=== PATIENT | female | born 1965 | race African-American/Black ===

== ENCOUNTER 2016-11-05 06:40 | Inpatient (IN) | payer MEDICARE, OTHER ==
[2016-10-07 12:05] VITALS: BMI 38.6
--- NOTE | 2016-11-04 10:07 | HP ---
Satellite H - Chief Complaint Chief Complaint: left knee pain - Past Medical History Allergies/Adverse Reactions: Allergies Allergy/AdvReac Type Severity Reaction Status Date / Time molindone HCl [From Jessica] Allergy Difficulty Verified 10/07/16 11:54 Breathing shellfish derived Allergy Difficulty Verified 10/07/16 11:54 Breathing tomato Allergy Verified 01/13/16 09:49 ...LMP Comment: 2004 - Current Medications Current Medications: Home Medications Medication Instructions Recorded Liraglutide [Victoza -] 1.8 mg SQ DAILY@0700 06/11/13 Metformin HCl 500 mg PO BID 01/13/16 Oxycodone HCl/Acetaminophen 1 - 2 tab PO Q6H PRN #12 tab MDD 4 01/13/16 [Percocet 5-325 mg Tablet] Risperidone [Risperdal -] 0.5 mg PO BID PRN 01/13/16 Rosuvastatin Calcium [Crestor] 20 mg PO HS 01/13/16 Esomeprazole Magnesium [Nexium 20 mg PO DAILY 10/07/16 24Hr] Paroxetine HCl [Paxil -] 10 mg PO DAILY 10/07/16 Ramipril 2.5 mg PO DAILY 10/07/16 Satellite Physical Exam - Physical Examination General Appearance: Well Nourished, Well Developed, Alert & Oriented x3, Obese ENT: Clear Lung: Normal air movement Heart: Regular rate & rhythm Extremities: Other (left knee- + swelling, + ttp, decr rom, nvi xrays show severe tricompartmental djd) Neurological: Intact, Alert, Oriented Satellite Impression/Plan - Impression/Plan Impression: left knee djd Operative Procedure: left adriano tkr Date to be Performed: 11/05/16
[2016-11-05] MEDS ORDERED: GABAPENTIN 300 MG CAPSULE (FP) PO ONE ×2 (07:02→08:20)
[2016-11-05] MEDS ORDERED: CELECOXIB 200 MG CAPSULE PO ONE ×2 (07:02→08:20)
[2016-11-05] MEDS ORDERED: CEFAZOLIN 2 GM in DEXTROSE 5%-WATER - 50 ML IVPB ONE (07:02)
[2016-11-05] MEDS ORDERED: TRANEXAMIC ACID 1000 MG/10 ML VIAL IVPUSH ONE (07:02)
[2016-11-05] MEDS ORDERED: oxyCODONE HCL 10 MG SUSTAINED ACTING TABLET PO ONE ×2 (07:02→08:20)
[2016-11-05] MEDS ORDERED: VANCOMYCIN 1,000 MG VIAL (RESTRICTED TO ID ONLY) ONE (07:25)
[2016-11-05] MEDS ORDERED: ceFAZolin SODIUM 1 GM VIAL ONE ×2 (07:25→09:37)
[2016-11-05] MEDS ORDERED: CELECOXIB 200 MG CAPSULE ONE (07:57)
[2016-11-05] MEDS ORDERED: oxyCODONE HCL 10 MG SUSTAINED ACTING TABLET ONE (07:57)
[2016-11-05] MEDS ORDERED: GABAPENTIN 300 MG CAPSULE (FP) ONE (07:57)
[2016-11-05] MEDS ORDERED: MIDAZOLAM HCL 2 MG/2 ML SINGLE DOSE VIAL ONE ×4 (08:22→10:37)
[2016-11-05] MEDS ORDERED: DEXAMETHASONE SOD PHOSPHATE 4 MG/1 ML VIAL ONE (08:23)
[2016-11-05] MEDS ORDERED: SODIUM CHLORIDE 0.9% P/F 10 ML VIAL IJ ONE ×2 (08:26→09:37)
[2016-11-05] MEDS ORDERED: DEXAMETHASONE SOD PHOSPHATE/PF 10 MG/ML SDV ONE (08:30)
[2016-11-05] MEDS ORDERED: BUPIVACAINE HCL/PF (5 MG/ML) 30 ML VIAL IJ ONE (09:09)
[2016-11-05] MEDS ORDERED: BUPIVACAINE HCL/PF 0.5% (5MG/ML) 10 ML VIAL ONE (09:29)
[2016-11-05] MEDS ORDERED: PROPOFOL 20 ML ONE ×3 (09:31)
[2016-11-05] MEDS ORDERED: SUCCINYLCHOLINE CHLORIDE 200 MG/10 ML VIAL ONE (09:31)
[2016-11-05] MEDS ORDERED: ePHEDrine SULFATE 50 MG/1 ML AMPULE ONE (09:37)
[2016-11-05] MEDS ORDERED: VANCOMYCIN 1,000 MG VIAL (RESTRICTED TO ID ONLY) IVPB ONE (12:15)
[2016-11-05] MEDS ORDERED: risperiDONE 0.5 MG TABLET (FP) PO PRN (12:19)
[2016-11-05] MEDS ORDERED: MAG HYDROX/AL HYDROX/SIMETH 30 ML UNIT-DOSE CUP PO PRN (12:20)
[2016-11-05] MEDS ORDERED: ONDANSETRON 4 MG/2 ML VIAL IVPB PRN (12:20)
[2016-11-05] MEDS ORDERED: MAGNESIUM HYDROX 2400MG/30ML ORAL SUSPENSION 30 ML CUP PO PRN (12:20)
--- NOTE | 2016-11-05 12:22 | OP ---
Operative Note - Note: Operative Date: 11/05/16 (dennis) Pre-Operative Diagnosis: left knee djd Operation: left adriano tkr Post-Operative Diagnosis: Same as Pre-op Surgeon: Ruperto Winn Product Development Specialist: Presley Giraldo Anesthesiologist/MANAGER SEMICONDUCTOR: Pelon Abraham Anesthesia: Spinal, Local Specimens Removed: bone fragments Estimated Blood Loss (mls): 50 (tourniquet) Operative Report Dictated: Yes
[2016-11-05] MEDS ORDERED: LACTATED RINGERS SOLUTION 1,000 ML IV SCH ×2 (12:30→13:00)
[2016-11-05] MEDS ORDERED: PROMETHAZINE HCL 25 MG/1 ML VIAL IVPUSH PRN (12:51)
[2016-11-05] MEDS ORDERED: ONDANSETRON 4 MG/2 ML VIAL IVPUSH PRN (12:51)
[2016-11-05] MEDS: ACETAMINOPHEN 1000 MG/100 ML VIAL (NON FORMULARY) IVPB ONE ×2 (13:22→14:22)
[2016-11-05] MEDS: INSULIN SLIDING SCALE (NOVOLOG) 1 VIAL SQ SCH ×2 (15:59→21:47)
[2016-11-05] MEDS: metFORMIN HCL 500 MG TABLET (FP) PO SCH (15:59)
[2016-11-05] MEDS ORDERED: INSULIN (NOVOLOG) ASPART 100 UNITS/ML 10ML VIAL ONE ×2 (16:14→21:51)
[2016-11-05] MEDS: oxyCODONE HCL 5 MG TABLET PO PRN ×3 (16:34→23:39)
[2016-11-05] MEDS: CEFAZOLIN 2 GM/D5W 50 ML IVPB SCH (17:14)
--- NOTE | 2016-11-05 19:29 | OP ---
DATE OF OPERATION: 11/05/2016 PREOPERATIVE DIAGNOSIS: Degenerative joint disease, right knee. POSTOPERATIVE DIAGNOSIS: Degenerative joint disease, right knee. PROCEDURE: Right total knee replacement with robotic assisted navigation (Makoplasty). SURGEON ATTENDING: Ruperto Winn M.D. MICROCHIP SPECIALIST: Alvino Rincon ANESTHESIA: Spinal and regional. CLOSURE: A knee system Press-Fit with a 2 femur, 2 tibia, 35 patella, 9 polyethylene. Number 1 Vicryl fascia, 0 and 2-0 subcutaneous, 3-0 Monocryl subcuticular with skin glue for skin, 4-0 undyed Vicryl for pin sites. ESTIMATED BLOOD LOSS: Negligible. TOURNIQUET TIME: Approximately 60 minutes. COMPLICATIONS: None. CONDITION: To recovery room in stable condition. DESCRIPTION OF PROCEDURE: Patient was taken to the operating room on November 05, 2016. Regional and spinal anesthesia were administered by the anesthesiologist. IV Kefzol and TXA were administered prior to the case. An open ended pneumatic tourniquet was placed on the right proximal thigh. The right lower extremity was prepped and draped in the usual sterile fashion. Leg was exsanguinated with an Esmarch bandage. Tourniquet was inflated to 275 mmHg. A 12 to 15 cm longitudinal midline incision was incised. Hemostasis was achieved with Bovie cautery. Sharp dissection was carried down to the level of the extensor mechanism the procedure. A medial parapatellar arthrotomy was then performed using a 10 blade, until the patella was able to be inverted, and the knee was flexed up. Fat pad was excised and subperiosteal dissection was done on the anteromedial proximal tibia until the knee was able to be brought forward. This was facilitated by taking the ACL, the PCL, and the meniscal remnants. Checkpoints were malleted both the medial femoral condyle and tibial plateau. Two more pins were drilled through one cortex until it engaged the cortex in the femur just proximal to the knee through the surgical incision, and two more were placed one handbreadth below the tibial tubercle through small stab incisions in the tibia. To this were fastened navigation arrays. The knee was then registered with the navigation device with multiple points on both the femur and the tibia. Confirmation of excellent registration was confirmed by "popping the bubbles". The osteophytes were then removed, the knee was then stressed in both flexion and extension to test out the gaps, and the virtual position of the components was optimized to establish optimal position of components. The robot was then brought in the field and used to cut the bone appropriately both from the tibia and the femur for the desired size, which was a number 2 both on the tibia and femur. Both cutting, again gaps were ascertained to be equal, both flexion and extension using "dog bones". The box was then made on the femur. Trial femoral component was applied with good line to line fit, and number 2 tibia was allowed to "find itself" with a 9-mm insert. It was then clipped into place. It was also confirmed to be in the ideal position by use of the navigation device to allow the appropriate external rotation. The patella was calipered thickness and osteotomized at appropriate level. A 35 lollipop was used to drill the lugholes in the patella, and the trial component was applied. The knee was taken through range of motion and found to have excellent stability throughout. Range of motion was full and excellent tracking of the patella. Trial components were removed, but first lugholes were drilled in the femur, and keel was punched in the tibia. The knee was thoroughly antibiotic irrigated, and the real Press-Fit components were then malleted into place, both the femur and tibia, and the patella was compressed into its position as well. The real number 9 polyethylene liner was then deployed and clipped into place. Range of motion, stability, and tracking was described earlier. It was thoroughly irrigated again. Vancomycin powder was placed in the arthrotomy. The medial parapatellar arthrotomy was then closed using number 1 Vicryl interrupted suture. Again the knee was again taken through range of motion and found to have excellent stability and excellent tracking. The subcutaneous was pulse irrigated and closed with 0 and 2-0 Vicryl and 3-0 Monocryl subcuticular for skin with skin glue. 4-0 undyed Vicryl for pin sites. Sterile Aquacel dressing was applied followed by a Velásquez dressing. The tourniquet was then deflated. Total tourniquet time was approximately 60 minutes. No complications. [place] [id number]
[2016-11-05] MEDS ORDERED: risperiDONE 0.25 MG TABLET (FP) PO PRN (20:43)
[2016-11-05] MEDS: ROSUVASTATIN CA 20 MG TABLET (FP) PO SCH (21:42)
[2016-11-05] MEDS: SENNOSIDES/DOCUSATE COMBO (SENNA PLUS) TABLET (UD) PO SCH (21:42)
[2016-11-06] MEDS: CEFAZOLIN 2 GM/D5W 50 ML IVPB SCH (01:37)
[2016-11-06] MEDS: oxyCODONE HCL 5 MG TABLET PO PRN ×4 (05:32→19:50)
[2016-11-06] MEDS: metFORMIN HCL 500 MG TABLET (FP) PO SCH ×2 (06:39→16:14)
[2016-11-06] MEDS: INSULIN SLIDING SCALE (NOVOLOG) 1 VIAL SQ SCH ×4 (06:41→21:45)
[2016-11-06] MEDS ORDERED: PT OWN MED DRAWER 7, Y5N ONE (06:56)
[2016-11-06] MEDS: LIRAGLUTIDE 0.6 MG/0.1 ML PEN.INJCTR SQ SCH (07:12)
[2016-11-06 08:16] LABS: MCH 27.7 pg (25.7-33.7); MCHC 33.7 g/dl (32.0-36.0); MEAN CELL VOLUME 82.2 fl (80-96); MEAN PLT VOLUME 9.4 fl (7.5-11.1); PLATELET COUNT 286 K/MM3 (134-434); WHITE BLOOD COUNT 11.5 K/mm3 (4.0-10.8)
--- NOTE | 2016-11-06 08:19 | PN ---
Progress Note (short form) - Note Progress Note: Ortho Pt seen and examined s/p left adriano tkr pod #1 Selected Entries 11/06/16 06:31 Temperature 98.7 F Pulse Rate 79 Respiratory 20 Rate Blood Pressure 112/59 Laboratory Tests 11/06/16 07:00 WBC 11.5 H Hgb 11.9 Hct 35.1 Plt Count 286 dressing c/d/i, calf soft, nt rom 0-30, nvi a/p PT dvt ppx pain control d/c home tomorrow if stable
[2016-11-06] MEDS: ASPIRIN 325 MG TABLET PO SCH (08:39)
[2016-11-06] MEDS: PANTOPRAZOLE 20 MG TABLET (FP) PO SCH (09:36)
[2016-11-06] MEDS: PARoxetine HCL 10 MG TABLET (FP) PO SCH (09:36)
[2016-11-06] MEDS: MULTIVITAMINS (DAILY MVI) TABLET (FP) PO SCH (09:36)
[2016-11-06] MEDS: SENNOSIDES/DOCUSATE COMBO (SENNA PLUS) TABLET (UD) PO SCH ×2 (09:36→21:39)
[2016-11-06] MEDS: RAMIPRIL 2.5 MG CAPSULE (FP) PO SCH (09:36)
--- NOTE | 2016-11-06 09:43 | PN ---
Progress Note (short form) - Note Progress Note: Anesthesiology Post-op/Pain Service POD#1 s/p Left TKR under regional/neuraxial anesthesia. She states that she has left thigh pain/pressure but does not c/o pain at operative site. She has some residual numbness in the knee/calf area. She states that it was difficult for her to participate in PT because she is feeling anxious/nervous but did not state specifically why. She currently is receiving her anxiety medication and states that she will try PT again today. Otherwise VSS, no apparent anesthesia- related complications.
[2016-11-06] MEDS ORDERED: PATIENT'S OWN MEDICATION (NON-FORMULARY) (Esomeprazole Magnesium [Nexium 24hr] 20 MG) PO SCH (10:00)
[2016-11-06] MEDS ORDERED: INSULIN (NOVOLOG) ASPART 100 UNITS/ML 10ML VIAL ONE ×3 (13:19→21:43)
[2016-11-06] MEDS ORDERED: morphine CARPU-JECT 10 MG/1 ML DISP.SYRIN IM PRN (19:54)
[2016-11-06] MEDS: ROSUVASTATIN CA 20 MG TABLET (FP) PO SCH (21:39)
[2016-11-07] MEDS: oxyCODONE HCL 5 MG TABLET PO PRN ×2 (03:37→09:36)
[2016-11-07 06:18] VITALS: BP 154/81; PULSE 108; TEMP 99.2
[2016-11-07] MEDS ORDERED: INSULIN (NOVOLOG) ASPART 100 UNITS/ML 10ML VIAL ONE (06:25)
[2016-11-07] MEDS ORDERED: PT OWN MED DRAWER 7, Y5N ONE ×2 (06:26→09:27)
[2016-11-07] MEDS: INSULIN SLIDING SCALE (NOVOLOG) 1 VIAL SQ SCH ×2 (06:31→11:49)
[2016-11-07] MEDS: metFORMIN HCL 500 MG TABLET (FP) PO SCH (06:31)
[2016-11-07] MEDS: LIRAGLUTIDE 0.6 MG/0.1 ML PEN.INJCTR SQ SCH (06:36)
--- NOTE | 2016-11-07 08:11 | PN ---
Progress Note (short form) - Note Progress Note: Ortho Pt seen and examined s/p left adriano tkr pod #2 Selected Entries 11/07/16 06:00 Temperature 99.2 F Pulse Rate 108 H Respiratory 19 Rate Blood Pressure 154/81 Laboratory Tests 11/06/16 07:00 WBC 11.5 H Hgb 11.9 Hct 35.1 Plt Count 286 dressing c/d/i, calf soft, nt rom 0-30, nvi a/p PT dvt ppx pain control d/c home today f/u in 1 week
--- NOTE | 2016-11-07 08:11 | DS ---
Physical Examination Vital Signs: Vital Signs Temperature 99.2 F 11/07/16 06:00 Pulse Rate 108 H 11/07/16 06:00 Respiratory Rate 19 11/07/16 06:00 Blood Pressure 154/81 11/07/16 06:00 O2 Sat by Pulse Oximetry (%) 93 L 11/07/16 06:00 Discharge Summary Reason For Visit: OSTEOARTHRITIS Procedures: Principal: s/p left adriano tkr Hospital Course: admitted for elective left adriano tkr, uneventful post-op, stable for d/c Condition: Good - Instructions Diet, Activity, Other Instructions: Post-op Instructions-Total Knee Replacement Call the office for a follow-up appointment in 1 week - [phone] Aspirin 325mg daily for 6 weeks. Pain medication was sent into your pharmacy. Apply Graduated Compression Stockings (TEDs) to both lower extremities- remove daily for hygiene ONLY Apply Sequential Compression Device (SCDs) to both Lower extremities remove for PT and hygiene ONLY Apply cold packs to affected area for 15 minutes every 2 hours. Physical Therapist will come to your home for the first 5 days. You will be set up with outpatient PT at your first post-operative visit. Patient may ambulate as tolerated-encourage self care (at least every 2-3 hours while awake) with walker or cane Maintain Aquacel (waterproof) dressing to operative wound (will be removed by surgeon at first office visit) Shower with Aquacel dressing in place-if Aquacel integrity compromised, remove and apply dry sterile dressing and notify Orthopedist. DO NOT SHOWER unless Orthopedists approves without Aquacel dressing CONTACT THE OFFICE FOR ANY CHANGE IN YOUR CONDITION (for example-fever greater than 102 degrees,excessive bleeding from operative site, purulent drainage, severe swelling or pain) GO TO THE EMERGENCY ROOM IF THERE IS A MEDICAL EMERGENCY Knee Precautions: * Keep a rolled towel under affected heel while in bed or chair (to keep knee in extension) * Keep affected leg elevated except during mealtimes * DO NOT PLACE PILLOW UNDER AFFECTED KNEE * If you have any questions, please do not hesitate to call the office - [phone]. Referrals: Ruperto Winn MD [Staff Physician] - Disposition: VNS/HOME HEALTH CARE - Home Medications Comprehensive Discharge Medication List: Ambulatory Orders Liraglutide [Victoza -] 1.8 mg SQ DAILY@0700 06/11/13 Metformin HCl 500 mg PO BID 01/13/16 Risperidone [Risperdal -] 0.5 mg PO BID PRN 01/13/16 Rosuvastatin Calcium [Crestor] 20 mg PO HS 01/13/16 Esomeprazole Magnesium [Nexium 24Hr] 20 mg PO DAILY 10/07/16 Paroxetine HCl [Paxil -] 10 mg PO DAILY 10/07/16 Ramipril 2.5 mg PO DAILY 10/07/16 Aspirin [ASA -] 325 mg PO DAILY@0800 tablet 11/05/16 Oxycodone HCl/Acetaminophen [Percocet 5-325 mg Tablet] 1 - 2 tab PO Q6H PRN #50 tab MDD 8 11/05/16
[2016-11-07 08:41] LABS: MCH 28.5 pg (25.7-33.7); MEAN CELL VOLUME 83.7 fl (80-96); MEAN PLT VOLUME 9.7 fl (7.5-11.1); PLATELET COUNT 277 K/MM3 (134-434); RDW 14.4 % (11.6-15.6); WHITE BLOOD COUNT 17.1 K/mm3 (4.0-10.8)
[2016-11-07] MEDS: ASPIRIN 325 MG TABLET PO SCH (09:34)
[2016-11-07] MEDS: RAMIPRIL 2.5 MG CAPSULE (FP) PO SCH (09:34)
[2016-11-07] MEDS: MULTIVITAMINS (DAILY MVI) TABLET (FP) PO SCH (09:34)
[2016-11-07] MEDS: SENNOSIDES/DOCUSATE COMBO (SENNA PLUS) TABLET (UD) PO SCH (09:35)
[2016-11-07] MEDS: PANTOPRAZOLE 20 MG TABLET (FP) PO SCH (09:35)
[2016-11-07] MEDS: PARoxetine HCL 10 MG TABLET (FP) PO SCH ×2 (09:35→11:49)
--- NOTE | 2016-11-07 16:02 | PATH ---
Surgical Pathology Report Patient Name: MIAH KINSEY Med. Rec. #: [id number] /Age/Gender: 1965 (Age: 51) / F Account: [id number] Location: [facility] MED-SURG Taken: 11/05/2016 Received: 11/05/2016 Reported: 11/07/2016 Physicians: Ruperto Winn M.D. Specimen(s) Received LEFT KNEE BONE AND TISSUE Clinical History Osteoarthritis left knee Final Diagnosis BONE AND TISSUE, LEFT KNEE, TOTAL KNEE REPLACEMENT: DEGENERATIVE JOINT DISEASE. Electronically Signed Louise Mendoza M.D. Gross Description Received in formalin labeled "left knee bone and tissue," is a 10.5 x 9.5 x 2.0 cm aggregate of multiple irregular, unoriented portions of bone and soft tissue. The tibial plateau measures 6.7 x 5.4 x 1.8 cm. There are no areas of eburnation identified. The articular surfaces are murphy-yellow and focally granular. The underlying trabecular bone is yellow and hard. Classification And Treatment Director sections are submitted in one cassette, following decalcification. 11/06/201611/06/2016
== END 2016-11-07 11:01 | disposition home health service (06) | DRG 470 ==
LOC: FM/S 06:40
PROVIDERS: ADMIT Orthopaedic Surgery; ATTEND Orthopaedic Surgery
PROC: 8E0YXCZ Robotic Assisted Procedure of Lower Extremity (ICD-10-PCS; 2016-11-05)
PROC: 0SRD0JA Replacement of Left Knee Joint with Synthetic Substitute, Uncemented, Open Approach (ICD-10-PCS; principal; 2016-11-05 10:57)
DX: M17.12 Unilateral primary osteoarthritis, left knee (principal); E66.9 Obesity, unspecified; Z68.38 Body mass index [BMI] 38.0-38.9, adult
CPT/HCPCS: 36415; 73560-TC-LT; 85027; 88304-TC; 88311-TC; 94010; 94760; 97010-GP; 97116-GP; 97161-GP

== ENCOUNTER 2016-12-02 03:30 | Emergency (ER) | payer MEDICARE, OTHER ==
[2016-12-02 04:41] VITALS: BP 126/80; PULSE 87; TEMP 97.7; BMI 32.5
--- NOTE | 2016-12-02 05:05 | PDOC ---
History of Present Illness - General Chief Complaint: Pain, Acute Stated Complaint: LEFT LEG PAIN Time Seen by Provider: 12/02/16 04:20 - History of Present Illness Initial Comments: 12/02/16 04:59 CHIEF COMPLAINT: L leg pain HISTORY OF PRESENT ILLNESS: 51 yo F with hx of NIDDM, HTN, HLD, s/p recent SANDRA procedure of L knee presents to ED with pain to L groin since yesterday. Patient states she took Percocet at around 8 pm last night but the pain continued "and I wanted to make sure I wasn't having a clot or anything." Patient denies any SOB, palpitations, difficulty breathing, chest pain, or headache. Patient denies any swelling, warmth, or pain to her lower extremity. PAST MEDICAL HISTORY: Denies past medical history FAMILY HISTORY: Denies SOCIAL HISTORY: Denies tobacco, alcohol, illicit drug use. SURGICAL HISTORY: L knee SANDRA 1 month ago, Total R knee replacement 2011, Bunion removal 2016) ALLERGIES: molindone, shellfish, tomato REVIEW OF SYSTEMS General/Constitutional: Denies fever or chills. Cardiovascular: Denies chest pain or shortness of breath. Respiratory: Denies cough, wheezing, or hemoptysis. Gastrointestinal: Denies nausea, vomiting, diarrhea or constipation. Musculoskeletal: Pain to L groin. Skin and breasts: Denies rash or easy bruising. PHYSICAL EXAM General Appearance: Well-appearing, appropriately dressed. No apparent distress. HEENT: EOMI, PERRLA. No photophobia, scleral icterus. Neck: Supple. Trachea midline. No tenderness, rigidity, carotid bruit, stridor , lymphadenopathy, or thyromegaly. Respiratory/Chest: Lungs CTAB. Cardiovascular: RRR. S1, S2. Vascular Pulses: Dorsalis-Pedis (R): 2+, Dorsalis-Pedis (L): 2+ Musculoskeletal/Extremities: Tenderness to L groin. Healed incision scars to b/ l knees. Negative Eudar's sign. No swelling, erythema, or warmth to legs b/l. Normal inspection. FROM of all extremities, normal capillary refill. Pelvis Stable. No CVA tenderness. No tenderness to extremities, pedal edema, swelling , erythema or deformity. Integumentary: Appropriate color, dry, warm. No cyanosis, erythema, jaundice or rash Neurologic: suede brusher II-XII intact. Fully oriented, alert. Appropriate mood/affect. Motor strength 5/5. No appreciable EOM palsy, facial droop or sensory deficit. Past History - Past Medical History Allergies/Adverse Reactions: Allergies Allergy/AdvReac Type Severity Reaction Status Date / Time molindone HCl [From Moban] Allergy Difficulty Verified 12/02/16 04:38 Breathing shellfish derived Allergy Difficulty Verified 12/02/16 04:38 Breathing tomato Allergy Verified 12/02/16 04:38 Home Medications: Ambulatory Orders Liraglutide [Victoza -] 1.8 mg SQ DAILY@0700 06/11/13 Metformin HCl 500 mg PO BID 01/13/16 Risperidone [Risperdal -] 0.5 mg PO BID PRN 01/13/16 Rosuvastatin Calcium [Crestor] 20 mg PO HS 01/13/16 Esomeprazole Magnesium [Nexium 24Hr] 20 mg PO DAILY 10/07/16 Paroxetine HCl [Paxil -] 10 mg PO DAILY 10/07/16 Ramipril 2.5 mg PO DAILY 10/07/16 Tramadol HCl 50 mg PO Q6H #20 tablet MDD 200 mg 12/02/16 Anemia: No Asthma: No Cardiac Disorders: No CVA: No COPD: No CHF: No Dementia: No Diabetes: Yes (DX IN 2006) GI Disorders: Yes (GERD) Disorders: No HTN: Yes Hypercholesterolemia: Yes Liver Disease: No Psychiatric Problems: Yes (depression,anxeity) Seizures: No Thyroid Disease: No - Surgical History Abdominal Surgery: No Appendectomy: No Cardiac Surgery: No Cholecystectomy: No Lung Surgery: No Neurologic Surgery: No Orthopedic Surgery: Yes (TOTAL RIGHT KNEE REPLACEMENT 2011, LEFT FOOT BUNIONECTOMY 2015) - Suicide/Smoking/Psychosocial Hx Smoking History: Unknown if ever smoked Have you smoked in the past 12 months: No Information on smoking cessation initiated: No Hx Alcohol Use: No Drug/Substance Use Hx: No Substance Use Type: None Hx Substance Use Treatment: No *Physical Exam - Vital Signs Last Vital Signs Temp Pulse Resp BP Pulse Ox 97.7 F 87 14 126/80 99 12/02/16 04:39 12/02/16 04:39 12/02/16 04:39 12/02/16 04:39 12/02/16 04:39 ED Treatment Course - LABORATORY CBC & Chemistry Diagram: 12/02/16 05:40 12/02/16 05:40 Medical Decision Making - Medical Decision Making 12/02/16 05:05 51 yo F with hx of NIDDM, HTN, HLD, s/p recent SANDRA procedure of L knee presents to ED with pain to L groin since yesterday. -CBC, CMP, PT/INR, D-dimer 12/02/16 06:35 D-dimer 1126, possibly still elevated s/p surgery but will r/o DVT with US. -Duplex U/S left leg Case discussed in detail with oncoming emergency provider including history, physical exam and ancillary studies. In brief, this patient is being seen in the ED for a chief complaint of: pain to L leg s/p surgery I have completed the initial assessment interview note and have ordered the following labs: CBC, CMP, PT/INR, D-Dimer I have reviewed the following results: CBC, PT/INR, D-dimer Pending results: CMP, Ultrasound Please call the PCP: Pa Plan for disposition as follows: admit Oncoming NARENDRA Ramírez has assumed care for the patient and will complete the evaluation and treatment. *DC/Admit/Observation/Transfer Diagnosis at time of Disposition: Groin pain Qualifiers: Laterality: left Qualified Code(s): R10.32 - Left lower quadrant pain - Discharge Dispostion Disposition: HOME Condition at time of disposition: Improved - Prescriptions Prescriptions: Tramadol HCl 50 mg PO Q6H #20 tablet MDD 200 mg - Referrals Referrals: Alejandro Powell [Primary Care Provider] - - Patient Instructions Additional Instructions: The cause of your groin pain is unclear at this time as your labs and ultrasound were negative. Take tramadol as needed for pain and follow-up with your PMD this week
[2016-12-02 05:48] LABS: BASOPHIL 0.4 % (0-2.0); EOSINOPHIL 1.6 % (0-4.5); MCH 27.5 pg (25.7-33.7); MCHC 32.3 g/dl (32.0-36.0); MEAN CELL VOLUME 84.9 fl (80-96); MEAN PLT VOLUME 8.3 fl (7.5-11.1); NEUTROPHILS 43.4 % (42.8-82.8); PLATELET COUNT 326 K/MM3 (134-434); RDW 15.7 % (11.6-15.6); WHITE BLOOD COUNT 9.5 K/mm3 (4.0-10.0)
[2016-12-02 06:22] LABS: INR 1.02 (0.82-1.09); PROTHROMBIN TIME (PATIENT) 11.2 SEC (9.98-11.88)
[2016-12-02 06:40] LABS: ALBUMIN 3.3 g/dl (3.4-5.0); ANION GAP 5 (8-16); BILIRUBIN,TOTAL 0.2 mg/dL (0.2-1.0); CALCIUM 9.2 mg/dL (8.5-10.1); CO2 29 mmol/L (21-32); CREATININE 0.6 mg/dL (0.55-1.02); GLUCOSE,RANDOM 120 mg/dL (74-106); SGOT/AST 12 U/L (15-37); SGPT/ALT 15 U/L (12-78); TOT PROT 6.6 g/dl (6.4-8.2)
[2016-12-02 06:41] LABS: ALK PHOS 113 U/L (45-117)
--- NOTE | 2016-12-02 07:41 | PDOC ---
*Physical Exam - Vital Signs Last Vital Signs Temp Pulse Resp BP Pulse Ox 97.7 F 87 14 126/80 99 12/02/16 04:39 12/02/16 04:39 12/02/16 04:39 12/02/16 04:39 12/02/16 04:39 - Physical Exam General Appearance: Yes: Appropriately Dressed. No: Apparent Distress HEENT: positive: Normal Voice Neck: positive: Supple Respiratory/Chest: negative: Respiratory Distress Gastrointestinal/Abdominal: positive: Soft. negative: Tender Extremity: positive: Normal Inspection Integumentary: positive: Dry, Warm Neurologic: positive: Fully Oriented, Alert, Normal Mood/Affect ED Treatment Course - LABORATORY CBC & Chemistry Diagram: 12/02/16 05:40 12/02/16 05:40 - ADDITIONAL ORDERS Additional order review: Laboratory Results 12/02/16 12/02/16 12/02/16 07:16 05:40 05:40 PT with INR 11.20 INR 1.02 D-Dimer 1126 H Sodium 142 Potassium 4.3 Chloride 108 H Carbon Dioxide 29 Anion Gap 5 L BUN 16 D Creatinine 0.6 Creat Clearance w eGFR > 60 POC Glucometer [phone] Random Glucose 120 H Calcium 9.2 Total Bilirubin 0.2 AST 12 L ALT 15 Alkaline Phosphatase 113 Total Protein 6.6 Albumin 3.3 L 12/02/16 12/02/16 07:16 05:40 RBC 4.10 MCV 84.9 MCHC 32.3 RDW 15.7 H MPV 8.3 Neutrophils % 43.4 D Lymphocytes % 46.0 H D Monocytes % 8.6 Eosinophils % 1.6 Basophils % 0.4 POC Glucometer [phone] Medical Decision Making - Medical Decision Making 12/02/16 07:40 Patient signed out to me at 7 AM by YANNI Matthew. Patient is a 51-year-old female with multiple comorbidities, status post left knee surgery recently comes in with left groin pain. Besides groin tenderness on exam, exam unremarkable. No signs of infection as per prior team. Dimer sig elevated, rest of labs wnl. Ultrasound rule out DVT pending 12/02/16 07:41 12/02/16 10:13 DVT study negative. Pt better w/ pain meds. Will dc w/ PMD f/u 12/02/16 10:41 *DC/Admit/Observation/Transfer Diagnosis at time of Disposition: Groin pain Qualifiers: Laterality: left Qualified Code(s): R10.32 - Left lower quadrant pain - Discharge Dispostion Disposition: HOME Condition at time of disposition: Improved - Prescriptions Prescriptions: Tramadol HCl 50 mg PO Q6H #20 tablet MDD 200 mg - Referrals Referrals: Alejandro Powell [Primary Care Provider] - - Patient Instructions Additional Instructions: The cause of your groin pain is unclear at this time as your labs and ultrasound were negative. Take tramadol as needed for pain and follow-up with your PMD this week
[2016-12-02] MEDS ORDERED: traMADol HCL 50 MG TABLET PO ONE (09:11)
[2016-12-02] MEDS ORDERED: traMADol HCL 50 MG TABLET ONE (09:12)
== END 2016-12-02 10:50 | disposition home or self-care (01) ==
LOC: JER 03:30
DX: R10.32 Left lower quadrant pain (principal); I10 Essential (primary) hypertension; E11.9 Type 2 diabetes mellitus without complications; Z79.84 Long term (current) use of oral hypoglycemic drugs; E78.00 Pure hypercholesterolemia, unspecified; Z79.82 Long term (current) use of aspirin; Z98.890 Other specified postprocedural states
CPT/HCPCS: 36415; 80053; 85025; 85379; 85610; 93971-TC; 99282-25

== ENCOUNTER 2018-05-18 11:06 | Emergency (ER) | payer OTHER ==
[2018-05-18 11:23] VITALS: BP 122/71; PULSE 98; TEMP 97; BMI 38.9
--- NOTE | 2018-05-18 11:58 | PDOC ---
History of Present Illness - History of Present Illness Initial Comments: 05/18/18 13:01 HPI The patient is a 53 yo F with hx of NIDDM, HTN, HLD, osteoarthritis s/p recent SANDRA, and bipolar disorder, BIBEMS, who presents to the emergency for evaluation of chest pain. Patient reports a 2 day history of intermittent, nonradiating, non-pleuritic chest pain lasting a few minutes, currently pain free. She notes her chest pain is brought upon her concern over her recent symptoms and current state of health. Patient reports an associated symptom of lightheadedness. Patient reports having recent stress test and cardiac catheterization on 05/06/18 which revealed normal LV function, clean coronaries , no aortic stenosis, and a normal angiogram at [facility]. She endorses chronic back pain, and states she has been drinking more fluids lately. Denies abdominal pain, leg swelling, or paresthesia of her extremities. Patient states she visited her PCP today due to her recent symptoms. Of note, patient states her dosage of abilify and lamictal were increased 2 weeks ago. The patient denies shortness of breath, headache, fevers, chills, nausea, vomiting, abdominal pain, diarrhea, constipation, dysuria, and hematuria. No prolonged immobilization or surgery. Past Medical History: NIDDM, HTN, HLD, and osteoarthritis s/p recent SANDRA, Bipolar disorder Surgical history: B/L TKR, Total hysterectomy, mass removed from breast Social history: No tobacco, ETOH or drug use. PCP: Dr. Alejandro Powell Client Success Manager: Dr. Delia Benavidez ([place]) ROS GENERAL/CONSTITUTIONAL: No fever or chills. No weakness. no sweats. HEAD, EYES, EARS, NOSE AND THROAT: No change in vision or hearing. +congestion. CARDIOVASCULAR: +chest pain. No edema RESPIRATORY: No SOB, cough, wheezing, or hemoptysis. GASTROINTESTINAL No nausea/vomiting. No diarrhea or constipation. No bloody stools. GENITOURINARY: No urinary changes MUSCULOSKELETAL: No joint or muscle swelling or pain. No decreased range of motion. No neck or back pain. SKIN: No rash or changes in skin color or lesions. NEUROLOGIC: (+)lightheadedness. alert and oriented appropriately No headache, dizziness, loss of consciousness, or change in strength/sensation. ALLERGIC/IMMUNOLOGIC: No allergies PSYCH: +bipolar, anxious. No depression. All other systems reviewed and negative, or as documented in HPI. Physical exam General: Well appearing, awake and alert, NAD. HEENT: NCAT, PERRL, EOMI, clear conjunctiva, anicteric, moist mucous membranes , clear oropharynx, no oral lesions.. Neck: neck supple, FROM Resp: CTAB, normal and even respirations, no respiratory distress CVS: No reproducible chest wall tenderness. RRR, no murmurs, 2+ peripheral pulses throughout, no peripheral edema Abdomen: soft, obese abdomen, NTND, no rebound or guarding. No CVAT. Back: nontender, normal inspection and ROM MSK: no edema, LAIRD x4, ROM intact. No clubbing or cyanosis. normal bulk and tone. Extremities: no calf tenderness, no calf swelling Neuro: alert, oriented appropriately; no focal neurologic deficits Skin: warm and well perfused, cap refill <2 sec, normal color <Dave Mas - Last Filed: 05/18/18 13:54> - General History Source: Patient Exam Limitations: No Limitations <Rita Griffith - Last Filed: 05/18/18 13:59> - General Chief Complaint: Pain Stated Complaint: CHEST PAIN,DIZZINESS Time Seen by Provider: 05/18/18 11:36 Past History <Dave Mas - Last Filed: 05/18/18 13:54> - Past Medical History Anemia: No Asthma: No Cardiac Disorders: No CVA: No COPD: No CHF: No Dementia: No Diabetes: Yes (DX IN 2006) GI Disorders: Yes (GERD) Disorders: No HTN: Yes Hypercholesterolemia: Yes Liver Disease: No Psychiatric Problems: Yes (depression,anxeity) Seizures: No Thyroid Disease: No - Surgical History Abdominal Surgery: No Appendectomy: No Cardiac Surgery: No Cholecystectomy: No Lung Surgery: No Neurologic Surgery: No Orthopedic Surgery: Yes (TOTAL RIGHT KNEE REPLACEMENT 2011, LEFT FOOT BUNIONECTOMY 2015) - Suicide/Smoking/Psychosocial Hx Smoking History: Never smoked Have you smoked in the past 12 months: No Information on smoking cessation initiated: No Hx Alcohol Use: No Drug/Substance Use Hx: No Substance Use Type: None Hx Substance Use Treatment: No <Rita Griffith - Last Filed: 05/18/18 13:59> - Past Medical History Allergies/Adverse Reactions: Allergies Allergy/AdvReac Type Severity Reaction Status Date / Time molindone HCl [From Moban] Allergy Difficulty Verified 05/18/18 11:09 Breathing shellfish derived Allergy Difficulty Verified 05/18/18 11:09 Breathing tomato Allergy Verified 05/18/18 11:09 Home Medications: Ambulatory Orders Liraglutide [Victoza -] 1.8 mg SQ DAILY@0700 06/11/13 Risperidone [Risperdal -] 0.5 mg PO BID PRN 01/13/16 Rosuvastatin Calcium [Crestor] 20 mg PO HS 01/13/16 metFORMIN HCL [Metformin HCl] 500 mg PO BID 01/13/16 Esomeprazole Magnesium [Nexium 24Hr] 20 mg PO DAILY 10/07/16 Paroxetine HCl [Paxil -] 10 mg PO DAILY 10/07/16 Ramipril 2.5 mg PO DAILY 10/07/16 Tramadol HCl 50 mg PO Q6H #20 tablet MDD 200 mg 12/02/16 *Physical Exam - Vital Signs Last Vital Signs Temp Pulse Resp BP Pulse Ox 97 F L 98 H 20 122/71 97 05/18/18 11:13 05/18/18 11:13 05/18/18 11:13 05/18/18 11:13 05/18/18 11:13 <Dave Mas - Last Filed: 05/18/18 13:54> - Vital Signs Last Vital Signs Temp Pulse Resp BP Pulse Ox 97 F L 98 H 20 122/71 97 05/18/18 11:13 05/18/18 11:13 05/18/18 11:13 05/18/18 11:13 05/18/18 11:13 <Rita Griffith - Last Filed: 05/18/18 13:59> Moderate Sedation - Procedure Monitoring Vital Signs: Procedure Monitoring Vital Signs Temperature 97 F L 05/18/18 11:13 Pulse Rate 98 H 05/18/18 11:13 Respiratory Rate 20 05/18/18 11:13 Blood Pressure 122/71 05/18/18 11:13 O2 Sat by Pulse Oximetry (%) 97 05/18/18 11:13 <Dave Mas - Last Filed: 05/18/18 13:54> - Procedure Monitoring Vital Signs: Procedure Monitoring Vital Signs Temperature 97 F L 05/18/18 11:13 Pulse Rate 98 H 05/18/18 11:13 Respiratory Rate 20 05/18/18 11:13 Blood Pressure 122/71 05/18/18 11:13 O2 Sat by Pulse Oximetry (%) 97 05/18/18 11:13 <GladisRita Griffithfaheemcammy - Last Filed: 05/18/18 13:59> Heart Score/ECG Review - History History: Slightly suspicious - Electrocardiogram EKG: Normal - Age Age: 45-65 - Risk Factors Risk Factors Heart Score: Yes Hx Hypercholesterolemia, Yes Hx Hypertension, Yes Hx Diabetes, Yes Hx Obesity Based on the list above the patient has:: >/=3 risk factors or Hx atherosclerotic disease - Troponin Troponin: </= normal limit - Score Heart Score - Total: 3 #1 ECG reviewed & interpreted by me at: 11:20 General ECG Interpretation: Sinus Rhythm Compared to previous ECG there are: No significant change 05/18/18 12:23 EKG normal sinus rhythm with mild tachycardia 107 bpm, no interval abnormalities , narrow QRS, ST and T wave segments and morphology normal. Nonspecific T wave abnormalities <GladisRita Gladisfaheemcammy - Last Filed: 05/18/18 13:59> ED Treatment Course - LABORATORY CBC & Chemistry Diagram: 05/18/18 12:05 05/18/18 12:05 - ADDITIONAL ORDERS Additional order review: Laboratory Results 05/18/18 05/18/18 12:05 11:41 PT with INR 12.50 INR 1.06 POC Glucometer 115 05/18/18 05/18/18 12:05 11:41 RBC 4.55 MCV 85.6 MCHC 33.2 RDW 15.0 MPV 8.3 Neutrophils % 58.0 D Lymphocytes % 36.2 D Monocytes % 4.7 Eosinophils % 0.5 Basophils % 0.6 POC Glucometer 115 <Dave Mas - Last Filed: 05/18/18 13:54> - LABORATORY CBC & Chemistry Diagram: 05/18/18 12:05 05/18/18 12:05 - ADDITIONAL ORDERS Additional order review: Laboratory Results 05/18/18 11:41 POC Glucometer 115 05/18/18 11:41 POC Glucometer 115 - RADIOLOGY Radiology Studies Ordered: Category Date Time Status CHEST X-RAY PORTABLE* [RAD] Stat Radiology 05/18/18 11:36 Ordered <Rita Griffith - Last Filed: 05/18/18 13:59> Medical Decision Making - Medical Decision Making 05/18/18 12:21 hpi as documented VS wnl. reassuring. initial tachy on EKg, but since resolved as well as on exam or hypoxia. DDx chest pain: ACS, coronary vasospasm, NSTEMI, arrhythmia, unstable angina, PE , dissection, PUD, esophageal spasm, GERD, gastritis, costochondritis, pneumonia , pleurisy, pericarditis/myocarditis. dehydration, electrolyte/metabolic derangements. Considered but clinically doubt based on HPI and PE: pe or dissection as no cp or sob. doubt acs as recently had left heart cath that had normal coronaries. Prior notes reviewed, including admissions, discharges and consultations. laboratory results and imaging reviewed, basic labs and lytes wnl, reassuring. CXR_no acute pathology, no edema or infection Cardiac panel_neg trop EKG normal sinus rhythm with mild tachycardia 107 bpm, no interval abnormalities , narrow QRS, ST and T wave segments and morphology normal. Nonspecific T wave abnormalities ED course: VS improved, no tachy or hypoxia to suggest PE. - reviewed [facility] cards notes with neg left heart cath and normal EF on angio - reassuring findings, clean coronaries. - heart score in low risk category (3), <1.7% of MACE with neg card workup - spoke with ART OBJECTS SUPERVISOR Zina Gracia with Dr Powell office, appropriate for OP followup, has cards f/u this week as well and reviewed presentation and negative workup, reassurance provided - unlikely cardiac, relaxation and biofeedback encouraged. continued weight loss and diet/exercise advised, which pt is doing and compliance with her home regimen of meds. she also had recent uptitration of her abilify and lamictal for her bipolar. Dispo: Pt informed of my clinical impression, treatment recommendations and disposition plan. All questions answered to patient's satisfaction and expressed understanding and comfort with this. Reasons for returning to the ED sooner discussed with the patient otherwise, follow up with primary care physician. At the time of discharge, the patient is alert, clinically improved, tolerating po and verbalizes understanding of instructions. Patient does not suffer from an acute life-threatening medical condition at this time she is safe for outpatient follow-up. 05/18/18 13:48 <Rita Griffith - Last Filed: 05/18/18 13:59> *DC/Admit/Observation/Transfer - Attestations Scribe Attestion: 05/18/18 13:02 Documentation prepared by Dave Mas, acting as medical officer psychiatry for Rita Griffith MD. <Dave Mas - Last Filed: 05/18/18 13:54> - Discharge Dispostion Decision to Admit order: No - Attestations Physician Attestion: 05/18/18 12:18 I, Rita Griffith MD, attest that this document has been prepared under my direction and personally reviewed by me in its entirety. I further attest, that it accurately reflects all work, treatment, procedures and medical decision -making performed by me. <Rita Griffith - Last Filed: 05/18/18 13:59> Diagnosis at time of Disposition: Chest pain Qualifiers: Chest pain type: unspecified Qualified Code(s): R07.9 - Chest pain, unspecified - Discharge Dispostion Disposition: HOME Condition at time of disposition: Good - Referrals Referrals: Alejandro Powell [Primary Care Provider] - - Patient Instructions Printed Discharge Instructions: DI for Atypical Chest Pain, DI for Chest Pain Additional Instructions: 1) Please follow-up with your primary care doctor in the next 1-2 days. Please call tomorrow for an appointment. If you cannot follow-up with your primary care doctor please return to the ED for any urgent issues. 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 2) You were given a copy of the tests performed today. Please bring the results with you and review them with your primary care doctor. Your laboratory / imaging results were normal, your Xray negative for pathology 3) If you have any worsening of symptoms or any other concerns please return to the ED immediately. Return if worsening symptoms including fevers, headache, vomiting, visual or hearing disturbances, abdominal pain, chest pain, shortness of breath, syncope, dehydration, inability to take things by mouth/vomiting, altered mental status, or worsening concerning symptoms. 4) Please continue taking your home medications as directed. your medications on discharge include your home regimen of medications and aspirin. . side effects may include upset stomach, abdominal pain, vomiting, or diarrhea. do not drink alcohol with your medications. 5) continue with your weight loss, diet and exercise - relaxation and avoiding stressors in your life that could exacerbate your chest pain. - Post Discharge Activity Forms/Work/School Notes: Back to Work
[2018-05-18 12:22] LABS: BASO % 0.6 % (0-2.0); EOS % 0.5 % (0-4.5); HEMOGLOBIN 12.9 GM/dL (10.7-15.3); LYMPH % 36.2 % (8-40); MCH 28.4 pg (25.7-33.7); MCHC 33.2 g/dl (32.0-36.0); MEAN CELL VOLUME 85.6 fl (80-96); MEAN PLT VOLUME 8.3 fl (7.5-11.1); MONO % 4.7 % (3.8-10.2); PLATELET COUNT 344 K/MM3 (134-434); RBC 4.55 M/mm3 (3.60-5.2); WHITE BLOOD COUNT 13.4 K/mm3 (4.0-10.0)
[2018-05-18 12:35] LABS: INR 1.06 (0.83-1.09); PROTHROMBIN TIME (PATIENT) 12.5 SEC (9.7-13.0)
[2018-05-18 13:05] LABS: ALBUMIN 3.6 g/dl (3.4-5.0); ALK PHOS 107 U/L (45-117); ANION GAP 6 MMOL/L (8-16); BILIRUBIN,TOTAL 0.2 mg/dL (0.2-1); BLOOD UREA NITROGEN 14 mg/dL (7-18); CALCIUM 9.4 mg/dL (8.5-10.1); CHLORIDE 107 mmol/L (98-107); CO2 27 mmol/L (21-32); CREATININE 0.9 mg/dL (0.55-1.3); GLUCOSE,RANDOM 115 mg/dL (74-106); MAGNESIUM 2.2 mg/dL (1.8-2.4); POTASSIUM 4.5 mmol/L (3.5-5.1); SGOT/AST 11 U/L (15-37); SGPT/ALT 18 U/L (13-61); SODIUM 140 mmol/L (136-145); TOT PROT 7.3 g/dl (6.4-8.2)
--- NOTE | 2018-05-18 23:46 | EKG ---
Test Reason : Blood Pressure : / mmHG Vent. Rate : 107 BPM Atrial Rate : 107 BPM P-R Int : 140 ms QRS Dur : 080 ms QT Int : 354 ms P-R-T Axes : 055 002 001 degrees QTc Int : 472 ms SINUS TACHYCARDIA OTHERWISE NORMAL ECG WHEN COMPARED WITH ECG OF 19-SEP-2014 08:30, NO SIGNIFICANT CHANGE WAS FOUND Confirmed by KELLY FARLEY MD ([id number]) on 05/18/2018 11:46:15 PM Referred By: Confirmed By:KELLY FARLEY MD
== END 2018-05-18 14:02 | disposition home or self-care (01) ==
LOC: JER 11:06
DX: R07.9 Chest pain, unspecified (principal); I10 Essential (primary) hypertension; E78.5 Hyperlipidemia, unspecified; E11.9 Type 2 diabetes mellitus without complications; Z79.84 Long term (current) use of oral hypoglycemic drugs; F31.9 Bipolar disorder, unspecified; M19.90 Unspecified osteoarthritis, unspecified site; Z98.61 Coronary angioplasty status; Z96.653 Presence of artificial knee joint, bilateral
CPT/HCPCS: 36415; 71045-TC-FY; 80053; 82962; 83735; 84484; 85025; 85610; 93005; 93010; 99283-25

== ENCOUNTER 2018-10-05 07:59 | Emergency (ER) | payer OTHER ==
[2018-10-05 08:09] VITALS: BP 122/75; PULSE 97; TEMP 98.4; BMI 38.2
--- NOTE | 2018-10-05 08:29 | PDOC ---
History of Present Illness - General Chief Complaint: Cold Symptoms Stated Complaint: COUGHING/ NETO EAR BURNING Time Seen by Provider: 10/05/18 08:24 History Source: Patient Exam Limitations: No Limitations - History of Present Illness Associated Symptoms: reports: cough, earache, nasal congestion, nasal drainage. denies: chest pain/soreness, dizziness, facial pain, fever/chills, headache, lightheadedness, muscle aches, shortness of breath, sinus infection, sore throat , wheezing Past History - Travel Traveled outside of the country in the last 30 days: No Close contact w/someone who was outside of country & ill: No - Past Medical History Allergies/Adverse Reactions: Allergies Allergy/AdvReac Type Severity Reaction Status Date / Time molindone HCl [From Moban] Allergy Difficulty Verified 05/18/18 11:09 Breathing shellfish derived Allergy Difficulty Verified 05/18/18 11:09 Breathing tomato Allergy Verified 05/18/18 11:09 Home Medications: Ambulatory Orders Liraglutide [Victoza -] 1.8 mg SQ DAILY@0700 06/11/13 Rosuvastatin Calcium [Crestor] 20 mg PO HS 01/13/16 metFORMIN HCL [Metformin HCl] 500 mg PO BID 01/13/16 Esomeprazole Magnesium [Nexium 24Hr] 20 mg PO DAILY 10/07/16 Ramipril 2.5 mg PO DAILY 10/07/16 Benzonatate [Tessalon Pearls -] 100 mg PO TID #21 capsule 10/05/18 Fluticasone Propionate [Flonase Allergy Relief] 9.9 ml NS ACDIN 7 Days #1 bottle 10/05/18 Anemia: No Asthma: No Cardiac Disorders: No CVA: No COPD: No CHF: No Dementia: No Diabetes: Yes GI Disorders: Yes (GERD) Disorders: No HTN: Yes Hypercholesterolemia: Yes Liver Disease: No Psychiatric Problems: Yes (depression,anxeity) Seizures: No Thyroid Disease: No - Surgical History Abdominal Surgery: No Appendectomy: No Cardiac Surgery: No Cholecystectomy: No Lung Surgery: No Neurologic Surgery: No Orthopedic Surgery: Yes (TOTAL RIGHT KNEE REPLACEMENT 2011, LEFT FOOT BUNIONECTOMY 2015) - Immunization History Immunization Up to Date: No - Suicide/Smoking/Psychosocial Hx Smoking History: Never smoked Have you smoked in the past 12 months: No Information on smoking cessation initiated: No Hx Alcohol Use: No Drug/Substance Use Hx: No Substance Use Type: None Hx Substance Use Treatment: No Review of Systems - Review of Systems Is the patient limited Vietnamese proficient: No Constitutional: No: Chills, Fever HEENTM: Yes: Ear Pain, Nose Congestion. No: Ear Discharge, Tinnitus, Throat Pain, Difficulty Swallowing Respiratory: Yes: Cough, Productive cough. No: Shortness of Breath, Wheezing, Hemoptysis Cardiac (ROS): No: Chest Pain, Lightheadedness, Palpitations, Syncope ABD/GI: No: Abdominal Distended, Diarrhea, Nausea, Vomiting Musculoskeletal: No: Back Pain Neurological: No: Headache, Numbness, Paresthesia, Tremors, Dizziness *Physical Exam - Vital Signs Last Vital Signs Temp Pulse Resp BP Pulse Ox 98.4 F 97 H 18 122/75 99 10/05/18 08:06 10/05/18 08:06 10/05/18 08:06 10/05/18 08:06 10/05/18 08:06 - Physical Exam General Appearance: Yes: Nourished HEENT: positive: EOMI, MISA, TMs Normal, Nasal Congestion Respiratory/Chest: positive: Lungs Clear, Normal Breath Sounds Cardiovascular: positive: Regular Rhythm, Regular Rate, S1, S2 Musculoskeletal: positive: Normal Inspection Extremity: positive: Normal Capillary Refill, Normal Inspection, Normal Range of Motion Integumentary: positive: Normal Color Neurologic: positive: monogram and letter paster II-XII NML intact, Fully Oriented, Alert, Normal Response, Motor Strength 5/5 Medical Decision Making - Medical Decision Making 10/05/18 08:35 53 years old female with history of hypertension diabetic presents with productive cough nasal congestion and bilateral ear pain for a week. Patient denies any fever hearing loss sore throat she denies sick contact with poor she's been sleeping under the before meals due to hot weather. On exam her lungs are clear bilateral TM is within normal limit patient does appear congested Patient will be treated for URI supportive care and had to sit medication given and Flonase. Hydration is encourage *DC/Admit/Observation/Transfer Diagnosis at time of Disposition: URI, acute - Discharge Dispostion Disposition: HOME Condition at time of disposition: Stable - Prescriptions Prescriptions: Benzonatate [Tessalon Pearls -] 100 mg PO TID #21 capsule Fluticasone Propionate [Flonase Allergy Relief] 9.9 ml NS ACDIN 7 Days #1 bottle - Referrals Referrals: Franco Diggs [Primary Care Provider] - - Patient Instructions Printed Discharge Instructions: DI for Common Cold Additional Instructions: Please follow up with your primary care doctor Return to the ER if worsening symptoms occurs - Post Discharge Activity
== END 2018-10-05 08:45 | disposition home or self-care (01) ==
LOC: JERFT 07:59
DX: J06.9 Acute upper respiratory infection, unspecified (principal); I10 Essential (primary) hypertension; E78.00 Pure hypercholesterolemia, unspecified; E11.9 Type 2 diabetes mellitus without complications; Z79.84 Long term (current) use of oral hypoglycemic drugs; F41.8 Other specified anxiety disorders; F32.9 Major depressive disorder, single episode, unspecified
CPT/HCPCS: 99281-25

== ENCOUNTER 2018-11-28 05:29 | Inpatient (IN) | payer OTHER ==
--- NOTE | 2018-11-28 05:40 | PDOC ---
Attending Attestation - Resident Resident Name: Mary Jane Washington - ED Attending Attestation I have performed the following: I have examined & evaluated the patient, The case was reviewed & discussed with the resident, I agree w/resident's findings & plan - HPI HPI: 11/28/18 06:29 53 yo female with HTN. DM, anxiety with Low abd pain that is crampy; 3/10 pain and watery diarrhea x 4 episodes that started yesterday.. Nausea and no vomiting. No dysuria, No fever. - Physicial Exam PE: 11/28/18 06:31 Pt has mild suprapubic tenderness. No rbound and no guarding and diffusely tender. Fever: oral temp 100.7 No flank pain. Pt has clear lungs. Prominent bowel sounds in the right lung field. - Medical Decision Making 11/28/18 06:41 Pt was at a BBQ yesterday afternoon and had chicken and mac and cheese. It may be the cheese or castro or chicken that may have had bacteria in it. 11/28/18 06:45 Pt is over 50, thus high risk for possible salmonella infection; I will treat with bactrim DS; also one dose of flagyl in the ER. 11/28/18 07:05 Pt signed out to the day ER attending
[2018-11-28] MEDS ORDERED: SODIUM CHLORIDE 0.9% 500 ML INFUS.BAG IV ONE ×2 (06:03→11:43)
--- NOTE | 2018-11-28 06:03 | PDOC ---
History of Present Illness - General Chief Complaint: Pain, Acute Stated Complaint: ABDOMINAL PAIN Time Seen by Provider: 11/28/18 05:38 - History of Present Illness Initial Comments: 11/28/18 06:04 53 y/o F hx of t2dm, anxiety, GERD, htn and hysterectomy presents to the ED with 3 days of abdominal cramping pain. Pain is diffuse across lower abdomen, 3 /10 in severity and intermittent in nature. Pain is non-radiating. She started experiencing diarrhea yesterday and has had 4 episodes of watery non-bloody diarrhea thus far. She is nauseous but hasn't had any episode of emesis. She is not aware of any foods she may have eaten that may have caused these symptoms. She denies any dysuria,hematuria, vaginal discharge, hx of IBD, chills, diaphoresis. 11/28/18 06:08 Past History - Past Medical History Allergies/Adverse Reactions: Allergies Allergy/AdvReac Type Severity Reaction Status Date / Time molindone HCl [From Moban] Allergy Difficulty Verified 11/28/18 05:32 Breathing shellfish derived Allergy Difficulty Verified 11/28/18 05:32 Breathing tomato Allergy Verified 11/28/18 05:32 Home Medications: Ambulatory Orders Rosuvastatin Calcium [Crestor] 20 mg PO HS 01/13/16 metFORMIN HCL [Metformin HCl] 500 mg PO BID 01/13/16 Esomeprazole Magnesium [Nexium 24Hr] 20 mg PO DAILY 10/07/16 Clonazepam [Klonopin] 1 mg PO PRN PRN 11/28/18 Lisinopril [Prinivil] 5 mg PO DAILY 11/28/18 Acetaminophen [Tylenol .Regular Strength -] 650 mg PO Q6H PRN tablet 11/29/18 Budesonide/Formeterol Fumarate [SYMBICORT 80/4.5mcg -] 2 puff IH BID #1 inhaler 11/29/18 Loperamide HCl [Imodium -] 2 mg PO Q8H #21 capsule 11/29/18 metroNIDAZOLE [Flagyl -] 500 mg PO TID #21 tablet 11/29/18 Anemia: No Asthma: No Cardiac Disorders: No CVA: No COPD: No CHF: No Dementia: No Diabetes: Yes GI Disorders: Yes (GERD) Disorders: No HTN: Yes Hypercholesterolemia: Yes Liver Disease: No Psychiatric Problems: Yes (depression,anxeity) Seizures: No Thyroid Disease: No - Surgical History Abdominal Surgery: No Appendectomy: No Cardiac Surgery: No Cholecystectomy: No Lung Surgery: No Neurologic Surgery: No Orthopedic Surgery: Yes (TOTAL RIGHT KNEE REPLACEMENT 2012, LEFT FOOT BUNIONECTOMY 2016) - Immunization History Immunization Up to Date: No - Psycho Social/Smoking Cessation Hx Smoking History: Never smoked Have you smoked in the past 12 months: No Information on smoking cessation initiated: No Hx Alcohol Use: No Drug/Substance Use Hx: No Substance Use Type: None Hx Substance Use Treatment: No Review of Systems - Review of Systems Constitutional: No: Chills, Night Sweats HEENTM: No: Blurred Vision Respiratory: No: Cough Cardiac (ROS): No: Chest Pain ABD/GI: Yes: Symptoms Reported : No: Burning, Dysuria Musculoskeletal: Yes: Back Pain Integumentary: No: Bruising, Change in Color Neurological: No: Headache Psychiatric: Yes: Anxiety *Physical Exam - Vital Signs Last Vital Signs Temp Pulse Resp BP Pulse Ox 98.6 F 118 H 18 111/64 98 11/28/18 05:32 11/28/18 05:32 11/28/18 05:32 11/28/18 05:32 11/28/18 05:32 - Physical Exam General Appearance: Yes: Nourished, Appropriately Dressed. No: Apparent Distress HEENT: positive: Normal Voice. negative: Scleral Icterus (R), Scleral Icterus ( L) Neck: positive: Tender, Supple Respiratory/Chest: positive: Lungs Clear, Other (bowel sounds heard in right middle lobe). negative: Chest Tender, Respiratory Distress, Accessory Muscle Use, Labored Respiration Cardiovascular: positive: Regular Rhythm, Regular Rate, S1, S2. negative: Edema , JVD Gastrointestinal/Abdominal: positive: Normal Bowel Sounds, Protuberent. negative: Pulsatile Mass, Increased Bowel Sounds, Distended, Guarding, Tenderness Musculoskeletal: positive: Normal Inspection, CVA Tenderness Extremity: positive: Normal Capillary Refill, Normal Inspection, Normal Range of Motion Integumentary: positive: Normal Color, Dry, Warm Neurologic: positive: Fully Oriented, Alert, Normal Mood/Affect, Normal Response ED Treatment Course - LABORATORY CBC & Chemistry Diagram: 11/29/18 06:00 11/29/18 06:00 Medical Decision Making - Medical Decision Making 11/28/18 06:16 53 y/o F hx of t2dm, anxiety, GERD, htn and hysterectomy presents to the ED with 3 days of abdominal cramping pain cbc,cmp, ua ,urine culture,lipase. 11/28/18 06:40 Repeat temperature was 100.7 11/28/18 06:43 Added: ct abdomen and pelvis with contrast, chest pa and lateral Signed out to Dr. Frances 12/03/18 08:33 Discharge - Discharge Information Problems reviewed: Yes Clinical Impression/Diagnosis: Diarrhea Qualifiers: Diarrhea type: unspecified type Qualified Code(s): R19.7 - Diarrhea, unspecified Condition: Stable Disposition: HOME - Admission No
[2018-11-28] MEDS ORDERED: ONDANSETRON 4 MG/2 ML VIAL IVPUSH ONE (06:07)
[2018-11-28] MEDS ORDERED: ONDANSETRON 4 MG/2 ML VIAL ONE (06:22)
[2018-11-28] MEDS ORDERED: ACETAMINOPHEN 1000 MG/100 ML VIAL (NON FORMULARY) IVPB ONE (06:40)
[2018-11-28] MEDS ORDERED: SULFAMETHOXAZOLE/TRIMETHOPRIM 800MG/160MG D.S. TABLET PO ONE (06:45)
[2018-11-28] MEDS ORDERED: FAMOTIDINE 20 MG/50 ML IVPB 20 MG/50 ML MG IVPB ONE ×2 (07:08→08:12)
[2018-11-28 07:10] LABS: BASO % 0.5 % (0-2.0); EOS % 0.5 % (0-4.5); HEMATOCRIT 40.2 % (32.4-45.2); HEMOGLOBIN 13.4 GM/dL (10.7-15.3); LYMPH % 13.4 % (8-40); MCH 27.8 pg (25.7-33.7); MCHC 33.2 g/dl (32.0-36.0); MEAN CELL VOLUME 83.7 fl (80-96); MEAN PLT VOLUME 8.8 fl (7.5-11.1); MONO % 2.7 % (3.8-10.2); NEUT % 82.9 % (42.8-82.8); PLATELET COUNT 292 K/MM3 (134-434); RDW 15.5 % (11.6-15.6); WHITE BLOOD COUNT 10.3 K/mm3 (4.0-10.0)
--- NOTE | 2018-11-28 07:20 | PDOC ---
*Physical Exam - Vital Signs Last Vital Signs Temp Pulse Resp BP Pulse Ox 98.6 F 118 H 18 111/64 98 11/28/18 05:32 11/28/18 05:32 11/28/18 05:32 11/28/18 05:32 11/28/18 05:32 - Physical Exam General Appearance: Yes: Apparent Distress (Anxious), Mild Distress ED Treatment Course - LABORATORY CBC & Chemistry Diagram: 11/28/18 06:30 11/28/18 06:30 - Medications Given in the ED: ED Medications Discontinued Medications Generic Name Dose Route Start Last Admin Trade Name Lindsey PRN Reason Stop Dose Admin Acetaminophen 1,000 mg 11/28/18 06:40 11/28/18 06:42 Ofirmev Injection - IVPB 11/28/18 06:41 1,000 mg ONCE ONE Administration Ondansetron HCl 4 mg 11/28/18 06:07 11/28/18 06:42 Zofran Injection IVPUSH 11/28/18 06:08 4 mg NOW ONE Administration Sodium Chloride 1,000 ml 11/28/18 06:03 11/28/18 06:42 Normal Saline - IV 11/28/18 06:04 1,000 ml ONCE ONE Administration Medical Decision Making - Medical Decision Making 11/28/18 07:13 Sign out received by Dr. Washington. 53 F with hx anxiety, HTN, GERD, DM p/w lower abdominal cramping, fever, diarrhea x4, nausea, no vomiting or urinary symptoms. Pending: [] CT abdomen pelvis w/contrast [] Labs [] UA [] PA / Lateral CXR Dispo: Pending, likely home 11/28/18 11:38 CT negative for acute process, small opacity noted in lung should be followed up in 6-[address] result provided to patient, encouraged PCP follow up as soon as possible. Labs wnl Case discussed with Dr. Bonilla - antibiotics discontinued before administration, no indication at this time. Plan for discharge, close PCP follow up after repeat vitals. *DC/Admit/Observation/Transfer Diagnosis at time of Disposition: Diarrhea Qualifiers: Diarrhea type: unspecified type Qualified Code(s): R19.7 - Diarrhea, unspecified - Discharge Dispostion Disposition: HOME Condition at time of disposition: Stable Decision to Admit order: No - Referrals Referrals: Franco Diggs [Non Staff, Medical] - - Patient Instructions Printed Discharge Instructions: DI for Diarrhea and Traveler's Diarrhea -- Adult Additional Instructions: You were seen in the emergency department for abdominal pain and diarrhea. We checked your blood work which returned normal. We conducted a CT scan of you belly as well which was also negative. They noted a small spot on your CT scan that needs to be followed up with a repeat scan in 6-12 months. We are giving you a copy of your CT results - please bring them to your primary care provider so that they can arrange for a follow up scan. Please follow up with your primary care provider in the next 7 days. Return to the emergency department if you develop high fevers, uncontrollable vomiting, or very severe pain. - Post Discharge Activity
[2018-11-28] MEDS ORDERED: LORazepam 1 MG TABLET PO ONE (07:38)
[2018-11-28 07:42] LABS: ALBUMIN 3.5 g/dl (3.4-5.0); BILIRUBIN,TOTAL 0.5 mg/dL (0.2-1); BLOOD UREA NITROGEN 14.5 mg/dL (7-18); CALCIUM 9.1 mg/dL (8.5-10.1); CREATININE 0.9 mg/dL (0.55-1.3); TOT PROT 6.7 g/dl (6.4-8.2)
[2018-11-28] MEDS ORDERED: SULFAMETHOXAZOLE/TRIMETHOPRIM 800MG/160MG D.S. TABLET ONE (08:12)
[2018-11-28] MEDS ORDERED: LORazepam 0.5 MG TABLET ONE (08:12)
[2018-11-28 09:34] LABS: PH,URINE >= 9.0 (5.0-8.0); URINE APPEARANCE CLOUDY; URINE BILIRUBIN NEGATIVE (NEGATIVE); URINE COLOR YELLOW; URINE GLUCOSE (UA) NEGATIVE (NEGATIVE); URINE KETONE NEGATIVE (NEGATIVE); URINE LEUK ESTERASE NEGATIVE (NEGATIVE); URINE NITRITE NEGATIVE (NEGATIVE); URINE PROTEIN TRACE (NEGATIVE); URINE UROBILINOGEN 0.2 mg/dL (0.2-1.0)
[2018-11-28] MEDS ORDERED: LOPERAMIDE HCL 2 MG CAPSULE PO ONE (14:34)
[2018-11-28] MEDS ORDERED: IPRATROPIUM BR 0.02% 0.5 MG/2.5 ML VIAL.NEB. NEB PRN (16:23)
[2018-11-28] MEDS ORDERED: ACETAMINOPHEN 325 MG TABLET (FP) PO PRN (16:23)
--- NOTE | 2018-11-28 16:25 | HP ---
Admitting History and Physical - Primary Care Physician PCP: Trixie Chester - Admission Chief Complaint: DIARRHEA/ABD PAIN FOUND TO HAVE 02 SAT 91% History of Present Illness: 53 Y/O FEMALE WITH H/O CIGARETTE SMOKING, DM, HTN, OBESITY LIPIDEMIA HERE AFTER ATTENDING A [facility] 2 DAYS AGO AND DEVELOPED NON-BLOODY DIARRHEA. NO FEVER OR CHILLS AND NO OTHER PEOPLE AT THE [facility] WERE SICK. PT ALSO WAS FOUND TO HAVE 02 SAT OF 91% ON ROOM AIR BUT COMFORTABLE. HER 02 SAT% THEN WENT BACK TO NORMAL. History Source: Patient - Smoking History Smoking history: Never smoked Have you smoked in the past 12 months: No - Alcohol/Substance Use Hx Alcohol Use: No Home Medications - Allergies Allergies/Adverse Reactions: Allergies Allergy/AdvReac Type Severity Reaction Status Date / Time molindone HCl [From MobZoyi] Allergy Difficulty Verified 11/28/18 05:32 Breathing shellfish derived Allergy Difficulty Verified 11/28/18 05:32 Breathing tomato Allergy Verified 11/28/18 05:32 - Home Medications Home Medications: Ambulatory Orders Liraglutide [Victoza -] 1.8 mg SQ DAILY@0700 06/11/13 Rosuvastatin Calcium [Crestor] 20 mg PO HS 01/13/16 metFORMIN HCL [Metformin HCl] 500 mg PO BID 01/13/16 Esomeprazole Magnesium [Nexium 24Hr] 20 mg PO DAILY 10/07/16 Clonazepam [Klonopin] 1 mg PO PRN PRN 11/28/18 Lisinopril [Prinivil] 5 mg PO DAILY 11/28/18 Review of Systems - Review of Systems Constitutional: reports: Other Eyes: reports: No Symptoms HENT: reports: No Symptoms Neck: reports: No Symptoms Cardiovascular: reports: No Symptoms Respiratory: reports: SOB Gastrointestinal: reports: Abdominal Pain, Diarrhea Genitourinary: reports: No Symptoms Musculoskeletal: reports: No Symptoms Integumentary: reports: No Symptoms Neurological: reports: No Symptoms Endocrine: reports: No Symptoms Hematology/Lymphatic: reports: No Symptoms Psychiatric: reports: No Symptoms Physical Examination Vital Signs: Vital Signs Temperature 99.7 F H 11/28/18 14:19 Pulse Rate 116 H 11/28/18 16:10 Respiratory Rate 18 11/28/18 16:10 Blood Pressure 124/63 11/28/18 16:10 O2 Sat by Pulse Oximetry (%) 92 L 11/28/18 16:10 Constitutional: Yes: Mild Distress Eyes: Yes: WNL HENT: Yes: WNL Neck: Yes: WNL Cardiovascular: Yes: Regular Rate and Rhythm Respiratory: Yes: WNL Gastrointestinal: Yes: Soft, Abdomen, Obese Renal/: Yes: WNL Musculoskeletal: Yes: WNL Extremities: Yes: WNL Edema: No Peripheral Pulses WNL: Yes Integumentary: Yes: WNL Wound/Incision: Yes: Clean/Dry Neurological: Yes: WNL ...Motor Strength: WNL Psychiatric: Yes: WNL Labs: CBC, BMP 11/28/18 06:30 11/28/18 06:30 Imaging - Results Chest X-ray: Report Reviewed Cat Scan: Report Reviewed Problem List - Problems (1) Diarrhea Code(s): R19.7 - DIARRHEA, UNSPECIFIED Qualifiers: Diarrhea type: unspecified type Qualified Code(s): R19.7 - Diarrhea, unspecified (2) Proteinuria Code(s): R80.9 - PROTEINURIA, UNSPECIFIED (3) Diabetes 1.5, 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 WILL MONITOR OVERNIGHT AND REEVALUATE IN MORNING
[2018-11-28] MEDS: INSULIN SLIDING SCALE (NOVOLOG) 1 VIAL SQ SCH ×2 (16:30→21:48)
[2018-11-28 17:12] LABS: VENOUS PC02 47.4 mmHg (38-52); VENOUS PH 7.34 (7.31-7.41); VENOUS PO2 < 49 mmHg (28-48)
--- NOTE | 2018-11-28 17:37 | CONSULT ---
Consult Consult Specialty:: Nephrology Reason for Consultation:: proteinuria - History of Present Illness Chief Complaint: diarrhea History of Present Illness: Pt is a 53 year old female with pmhx of dm, gerd and anxiety who presents to the er with diarrhea. She says she was at a bbq where she at chicken and macaroni salad. She then had abd cramps and diarrhea. She denies vomiting. She was found to have protein in her urine. She denies shortness of breath. She feels that her diarrhea is resolved. She denies fever or chills. - History Source History Provided By: Patient - Past Medical History Cardio/Vascular: Yes: HTN, Hyperlipdemia Endocrine: Yes: Diabetes Mellitus - Alcohol/Substance Use Hx Alcohol Use: No - Smoking History Smoking history: Never smoked Have you smoked in the past 12 months: No Home Medications - Allergies Allergies/Adverse Reactions: Allergies Allergy/AdvReac Type Severity Reaction Status Date / Time molindone HCl [From Moban] Allergy Difficulty Verified 11/28/18 05:32 Breathing shellfish derived Allergy Difficulty Verified 11/28/18 05:32 Breathing tomato Allergy Verified 11/28/18 05:32 - Home Medications Home Medications: Ambulatory Orders Liraglutide [Victoza -] 1.8 mg SQ DAILY@0700 06/11/13 Rosuvastatin Calcium [Crestor] 20 mg PO HS 01/13/16 metFORMIN HCL [Metformin HCl] 500 mg PO BID 01/13/16 Esomeprazole Magnesium [Nexium 24Hr] 20 mg PO DAILY 10/07/16 Clonazepam [Klonopin] 1 mg PO PRN PRN 11/28/18 Lisinopril [Prinivil] 5 mg PO DAILY 11/28/18 Family Medical History Family History: Denies Review of Systems - Review of Systems Constitutional: reports: No Symptoms Eyes: reports: No Symptoms HENT: reports: No Symptoms Neck: reports: No Symptoms Cardiovascular: reports: No Symptoms Respiratory: reports: No Symptoms Gastrointestinal: reports: No Symptoms Genitourinary: reports: No Symptoms Musculoskeletal: reports: No Symptoms Integumentary: reports: No Symptoms Neurological: reports: No Symptoms Endocrine: reports: No Symptoms Hematology/Lymphatic: reports: No Symptoms Psychiatric: reports: No Symptoms Physical Exam Vital Signs: Vital Signs Temperature 99.7 F H 11/28/18 14:19 Pulse Rate 116 H 11/28/18 16:10 Respiratory Rate 18 11/28/18 16:10 Blood Pressure 124/63 11/28/18 16:10 O2 Sat by Pulse Oximetry (%) 92 L 11/28/18 16:35 Constitutional: Yes: Calm Eyes: Yes: Conjunctiva Clear HENT: Yes: Atraumatic Neck: Yes: Supple Cardiovascular: Yes: S1, S2 Respiratory: Yes: CTA Bilaterally Gastrointestinal: Yes: Normal Bowel Sounds, Soft, Abdomen, Obese Renal/: Yes: WNL Musculoskeletal: Yes: WNL Edema: No Neurological: Yes: Oriented Psychiatric: Yes: Oriented Labs: CBC, BMP 11/28/18 06:30 11/28/18 06:30 Laboratory Tests 11/28/18 06:40 Urine pH >= 9.0 H D Urine Protein Trace Urine Blood Negative Problem List - Problems (1) Proteinuria Code(s): R80.9 - PROTEINURIA, UNSPECIFIED (2) Diarrhea Code(s): R19.7 - DIARRHEA, UNSPECIFIED Qualifiers: Diarrhea type: unspecified type Qualified Code(s): R19.7 - Diarrhea, unspecified (3) Anxiety Code(s): F41.9 - ANXIETY DISORDER, UNSPECIFIED Assessment/Plan Current Medications Generic Name Dose Route Start Last Admin Trade Name Freq PRN Reason Stop Dose Admin Acetaminophen 650 mg 11/28/18 16:23 Tylenol - PO Q6H PRN PAIN OR FEVER Budesonide/Formoterol Fumarate 2 puff 11/28/18 22:00 Symbicort 80/4.5mcg - IH BID ANNIKA Clonazepam 0.5 mg 11/28/18 16:23 Klonopin - PO Q12H PRN ANXIETY Insulin Aspart 1 vial 11/28/18 16:30 11/28/18 16:30 Novolog Vial Sliding Scale - SQ Not Given ACHS ANNIKA Protocol Ipratropium [place] 1 amp 11/28/18 16:23 Atrovent 0.02% Nebulizer - NEB Q6H PRN WHEEZING Pantoprazole Sodium 40 mg 11/29/18 10:00 Protonix - PO DAILY ANNIKA Rosuvastatin Calcium 20 mg 11/28/18 22:00 Crestor - PO HS ANNIKA Impression 1. proteinuria 2. dm 3. HLD 4. anxiety 5. 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
[2018-11-28] MEDS ORDERED: SODIUM CHLORIDE 0.45% 1,000 ML IV SCH (17:45)
[2018-11-28] MEDS: clonazePAM 0.5 MG TABLET PO PRN (21:37)
[2018-11-28] MEDS ORDERED: ROSUVASTATIN CA 20 MG TABLET (FP) PO SCH (22:00)
[2018-11-28] MEDS: BUDESONIDE/FORMETEROL FUMARATE 80/4.5 mcg INHALER IH SCH (22:51)
[2018-11-28 23:08] VITALS: BMI 39.7
[2018-11-29] MEDS ORDERED: MAG HYDROX/AL HYDROX/SIMETH 30 ML UNIT-DOSE CUP PO ONE (01:22)
[2018-11-29] MEDS: INSULIN SLIDING SCALE (NOVOLOG) 1 VIAL SQ SCH (06:01)
[2018-11-29 07:39] LABS: HEMATOCRIT 39.6 % (32.4-45.2); HEMOGLOBIN 13.2 GM/dL (10.7-15.3); MCH 28.2 pg (25.7-33.7); MCHC 33.3 g/dl (32.0-36.0); MEAN CELL VOLUME 84.7 fl (80-96); MEAN PLT VOLUME 9.1 fl (7.5-11.1); PLATELET COUNT 286 K/MM3 (134-434); RBC 4.67 M/mm3 (3.60-5.2); RDW 15.4 % (11.6-15.6); WHITE BLOOD COUNT 9.5 K/mm3 (4.0-10.0)
[2018-11-29 07:57] LABS: ALBUMIN 3.3 g/dl (3.4-5.0); BILIRUBIN,TOTAL 0.5 mg/dL (0.2-1); BLOOD UREA NITROGEN 8.8 mg/dL (7-18); CALCIUM 8.7 mg/dL (8.5-10.1); CREATININE 0.7 mg/dL (0.55-1.3); POTASSIUM 3.7 mmol/L (3.5-5.1); TOT PROT 6.6 g/dl (6.4-8.2)
--- NOTE | 2018-11-29 08:44 | DS ---
Physical Examination Vital Signs: Vital Signs Temperature 98.5 F 11/29/18 06:00 Pulse Rate 101 H 11/29/18 06:00 Respiratory Rate 18 11/29/18 06:00 Blood Pressure 133/84 11/29/18 06:00 O2 Sat by Pulse Oximetry (%) 97 11/28/18 21:30 Findings/Remarks: AWAKE ALERT EATING BREAKFAST 1 EPISODE OF NON-BLOODY DIARRHEA TOLERATING MEALS Constitutional: Yes: No Distress Eyes: Yes: WNL HENT: Yes: WNL Neck: Yes: WNL Cardiovascular: Yes: WNL Respiratory: Yes: WNL Gastrointestinal: Yes: Abdomen, Obese Renal/: Yes: WNL Edema: No Integumentary: Yes: WNL Wound/Incision: Yes: Clean/Dry Neurological: Yes: WNL ...Motor Strength: WNL Psychiatric: Yes: WNL Labs: CBC, BMP 11/29/18 06:00 11/29/18 06:00 Discharge Summary Reason For Visit: TACHYCARDIA Current Active Problems Diarrhea (Acute) Proteinuria (Acute) LUNG NODULE Procedures: Principal: CT ABD Hospital Course: ADMITTED FOR ABDOMINAL PAIN DIARRHEA RESOLVING, CAN GO HOME AND F/U WITH PMD IN 2-3 DAYS INCREASE LIQUID INTAKE, IMMODIUM PRN Condition: Stable - Instructions Diet, Activity, Other Instructions: NEEDS REPEAT CT CHEST TO REEVALUATE LUNG NODULES SMOKING CESSATION D/W PATIENT SEE YOUR PMD DR LOWE IN 2-3 DAYS Disposition: HOME - Home Medications Comprehensive Discharge Medication List: Ambulatory Orders Liraglutide [Victoza -] 1.8 mg SQ DAILY@0700 06/11/13 Rosuvastatin Calcium [Crestor] 20 mg PO HS 01/13/16 metFORMIN HCL [Metformin HCl] 500 mg PO BID 01/13/16 Esomeprazole Magnesium [Nexium 24Hr] 20 mg PO DAILY 10/07/16 Clonazepam [Klonopin] 1 mg PO PRN PRN 11/28/18 Lisinopril [Prinivil] 5 mg PO DAILY 11/28/18
[2018-11-29] MEDS ORDERED: LOPERAMIDE HCL 2 MG CAPSULE PO PRN (08:49)
[2018-11-29] MEDS ORDERED: PANTOPRAZOLE 40 MG TABLET (FP) PO SCH (10:00)
[2018-11-29] MEDS: BUDESONIDE/FORMETEROL FUMARATE 80/4.5 mcg INHALER IH SCH (10:14)
[2018-11-29] MEDS: clonazePAM 0.5 MG TABLET PO PRN (11:10)
[2018-11-29 12:28] VITALS: BP 134/85; PULSE 105; TEMP 97.8
--- NOTE | 2018-11-30 11:34 | EKG ---
Test Reason : Blood Pressure : / mmHG Vent. Rate : 104 BPM Atrial Rate : 104 BPM P-R Int : 138 ms QRS Dur : 088 ms QT Int : 356 ms P-R-T Axes : 137 176 148 degrees QTc Int : 468 ms LIKELY SINUS RHYTHM WHEN COMPARED WITH ECG OF 18-MAY-2018 11:16, T WAVE VARIATION LIMB LEAD REVERSAL Confirmed by KELLY FARLEY MD ([id number]) on 11/30/2018 11:34:19 AM Referred By: Confirmed By:KELLY FARLEY MD
== END 2018-11-29 11:15 | disposition home or self-care (01) | DRG 392 ==
LOC: JER 05:29 → JERBED 15:02 → J7W 20:53
PROVIDERS: ADMIT Family Medicine; ATTEND Family Medicine
DX: K52.89 Other specified noninfective gastroenteritis and colitis (principal); K21.9 Gastro-esophageal reflux disease without esophagitis; I10 Essential (primary) hypertension; E11.9 Type 2 diabetes mellitus without complications; F41.9 Anxiety disorder, unspecified; E78.5 Hyperlipidemia, unspecified; E66.8 Other obesity; Z68.39 Body mass index [BMI] 39.0-39.9, adult; R80.9 Proteinuria, unspecified; R10.9 Unspecified abdominal pain
CPT/HCPCS: 36415; 71046-TC-FY; 74177-TC; 80053; 81003; 82550; 82803; 82962; 83690; 84484; 84703; 85025; 85027; 85379; 87086; 87324; 87449; 93005; 93010; 93970-TC; 99285-25; J0131

== ENCOUNTER 2019-10-05 12:54 | Emergency (ER) | payer BC, OTHER ==
[2019-10-05 13:44] VITALS: BMI 38.7
--- NOTE | 2019-10-05 14:30 | PDOC ---
History of Present Illness - General Chief Complaint: Chest Pain Stated Complaint: CHEST PAIN Time Seen by Provider: 10/05/19 13:20 - History of Present Illness Initial Comments: 10/05/19 14:19 54 yo female with pmh of htn, hld, NIDDM, anxiety, and recently diagnosed H. pylori by EGD on amoxicillin and clarithromycin presents to ED for one day of throat pain. Pt explains that she started having worsening throat pain that is 8/10 in pain and sharp. Pt explains pain is on upper throat area does not radiate to chest. Pt does also have associated SOB which she said improved when EMS put O2 on her. She explains that it is most likely due to her anxiety. Pt denies abdominal pain, nausea, emesis, palpitations, change in urination or change in bowel movments. Pt on a seperate instance also states she has been having copious yellow vaginal discharge for past five days since starting medication. Pt explains it is pruiritic but not painful. Pt denies prior history of STI or STD, but has had unprotected sex with male. PMH: HTN, HLD, NIDDM, anxiety, H. pylori Meds: rosuvastatin, metformin, esmoprazole, lisinopril, amoxicillin, clarithromycin PSH: Hysterctomy, Right breast mass removed, knee surgery Allergy: molindone, shellfish, tomato PCP: Dr. Chester GI: Dr. Moreira Past History - Medical History Allergies/Adverse Reactions: Allergies Allergy/AdvReac Type Severity Reaction Status Date / Time molindone HCl [From Moban] Allergy Difficulty Verified 11/28/18 05:32 Breathing shellfish derived Allergy Difficulty Verified 11/28/18 05:32 Breathing tomato Allergy Verified 11/28/18 05:32 Home Medications: Ambulatory Orders Rosuvastatin Calcium [Crestor] 20 mg PO HS 01/13/16 metFORMIN HCL [Metformin HCl] 500 mg PO BID 01/13/16 Esomeprazole Magnesium [Nexium 24Hr] 20 mg PO DAILY 10/07/16 Clonazepam [Klonopin] 1 mg PO PRN PRN 11/28/18 Lisinopril [Prinivil] 5 mg PO DAILY 11/28/18 Acetaminophen [Tylenol .Regular Strength -] 650 mg PO Q6H PRN tablet 11/29/18 Loperamide HCl [Imodium -] 2 mg PO Q8H #21 capsule 11/29/18 metroNIDAZOLE [Flagyl -] 500 mg PO TID #21 tablet 11/29/18 Anemia: No Asthma: No Cardiac Disorders: No CVA: No COPD: No CHF: No Dementia: No Diabetes: Yes GI Disorders: Yes (GERD) Disorders: No HTN: Yes Hypercholesterolemia: Yes Liver Disease: No Psychiatric Problems: Yes (depression,anxeity) Seizures: No Thyroid Disease: No - Surgical History Abdominal Surgery: No Appendectomy: No Cardiac Surgery: No Cholecystectomy: No Lung Surgery: No Neurologic Surgery: No Orthopedic Surgery: Yes (TOTAL RIGHT KNEE REPLACEMENT 2011, LEFT FOOT BUNIONECTOMY 2015) - Immunization History Immunization Up to Date: No - Psycho-Social/Smoking History Smoking History: Never smoked Have you smoked in the past 12 months: No Information on smoking cessation initiated: No - Substance Abuse Hx (Audit-C & DAST Scrn) How often the patient has a drink containing alcohol: Never Score: In Men: 4 or > Positive; In Women: 3 or > Positive: 0 Screen Result (Pos requires Nsg. Audit-10AR): Negative In the last yr the pt used illegal drug/Rx for NonMed reason: No Score: Yes response is considered Positive: 0 Screen Result (Positive result requires Nsg. DAST-10): Negative Review of Systems - Review of Systems Comments:: 10/05/19 14:30 GENERAL/CONSTITUTIONAL: No fever or chills. No weakness. HEAD, EYES, EARS, NOSE AND THROAT: No change in vision. No ear pain or discharge. Throat pain CARDIOVASCULAR: No chest pain. SOB prior to arrival. RESPIRATORY: cough with no sputum. NO wheezing, or hemoptysis. GASTROINTESTINAL: No nausea, vomiting, diarrhea or constipation. GENITOURINARY: No dysuria, frequency, or change in urination. Copious vaginal discharge MUSCULOSKELETAL: No joint or muscle swelling or pain. No neck or back pain. SKIN: No rash NEUROLOGIC: No headache, vertigo, loss of consciousness, or change in strength/sensation. ALLERGIC/IMMUNOLOGIC: No hives or skin allergy. *Physical Exam - Vital Signs Last Vital Signs Temp Pulse Resp BP Pulse Ox 98.0 F 105 H 18 127/77 98 10/05/19 13:00 10/05/19 13:00 10/05/19 13:00 10/05/19 13:00 10/05/19 13:00 - Physical Exam 10/05/19 14:31 GENERAL: Awake, alert, and fully oriented, in no acute distress HEAD: No signs of trauma, normocephalic, atraumatic EYES: PERRLA, EOMI, sclera anicteric, conjunctiva clear ENT: hearing grossly normal, nares patent, oropharynx clear without exudates. Moist mucosa NECK: Normal ROM, supple, no lymphadenopathy, JVD, or masses LUNGS: No distress, speaks full sentences, clear to auscultation bilaterally. Tachypnic HEART: Nontender to palpation of anterior chest wall no crepitus felt. Regular rhythm, but tachycardic, normal S1 and S2, no murmurs, rubs or gallops, peripheral pulses normal and equal bilaterally. ABDOMEN: Soft, nontender. No guarding, no rebound. No masses EXTREMITIES : Normal inspection, Normal range of motion, no edema. No clubbing or cyanosis. NEUROLOGICAL: Cranial nerves II through XII grossly intact. Normal speech, normal gait, no focal sensorimotor deficits SKIN: Warm, Dry, normal turgor, no rashes or lesions noted : copious yellow secretion, cervical os closed, no cervical or adnexal tenderness ED Treatment Course - LABORATORY CBC & Chemistry Diagram: 10/05/19 14:30 10/05/19 14:30 - RADIOLOGY Radiology Studies Ordered: Category Date Time Status CHEST PA & LAT [RAD] Stat Radiology 10/05/19 14:10 Ordered Medical Decision Making - Medical Decision Making 10/05/19 14:39 54 yo female with pmh of NIDDM, HTN, HLD, EGD done five days ago presenting to ED with one day of throat pain. Will rule out EGD complication with chest xray. Will rule out ACS with cardiac enzymes and ekg. Will rule out Strep with Centor criteria which is negative 1. 10/05/19 15:00 Pt was very anxious so gave .5mg Ativan. Also gave viscous lidocaine for throat pain. 10/05/19 18:11 Pt is still tachycardic to 104 most likely due to her anxiety but feels much better. She also states she wants to go home. Will discharge with PCP follow up and DC instructions. 10/05/19 21:19 Will call back for pts results of chlamydia and gonorrhea Discharge - Discharge Information Problems reviewed: Yes Clinical Impression/Diagnosis: Sore throat Condition: Improved Disposition: HOME - Follow up/Referral Referrals: Trixie Chester MD [Primary Care Provider] - - Patient Discharge Instructions Patient Printed Discharge Instructions: Sore Throat Additional Instructions: You came into the ED for sore throat. This is most likely viral. At the ED we gave you a Chest xray and labs to rule out any serious pathology. Everything was normal. Please follow up with your primary care physician within one week for further workup. If you have any of the following please return to the ED: - Worsening symptoms - chest pain or shortness of breath - vomiting or bloody vomiting - unable to eat from mouth - any emergent symptoms if you have an emergency please call the ED. - Post Discharge Activity
[2019-10-05] MEDS ORDERED: LIDOCAINE VISCOUS 2% ORAL/TOP 20 ML UNIT-DOSE CUP MM ONE (14:59)
[2019-10-05] MEDS ORDERED: LIDOCAINE VISCOUS 2% ORAL/TOP 20 ML UNIT-DOSE CUP ONE (14:59)
[2019-10-05] MEDS ORDERED: LORazepam 2 MG/ML SDV VIAL ONE (15:00)
[2019-10-05 15:05] LABS: BASO % 0.3 % (0-2.0); EOS % 0.5 % (0-4.5); LYMPH % 30.8 % (8-40); MCH 27.4 pg (25.7-33.7); MCHC 31.7 g/dl (32.0-36.0); MEAN CELL VOLUME 86.7 fl (80-96); MEAN PLT VOLUME 8.9 fl (7.5-11.1); MONO % 6.5 % (3.8-10.2); NEUT % 61.9 % (42.8-82.8); PLATELET COUNT 292 K/MM3 (134-434); RBC 4.73 M/mm3 (3.60-5.2); RDW 15.3 % (11.6-15.6)
[2019-10-05] MEDS: LIDOCAINE VISCOUS 2% ORAL/TOP 20 ML UNIT-DOSE CUP MM ONE ×2 (15:10→15:15)
[2019-10-05 15:46] LABS: ALBUMIN 3.6 g/dl (3.4-5.0); ALK PHOS 93 U/L (45-117); ANION GAP 11 MMOL/L (8-16); BILIRUBIN,TOTAL 0.4 mg/dL (0.2-1); BLOOD UREA NITROGEN 12.3 mg/dL (7-18); CALCIUM 9.2 mg/dL (8.5-10.1); CHLORIDE 107 mmol/L (98-107); CO2 24 mmol/L (21-32); CREATININE 0.9 mg/dL (0.55-1.3); GLUCOSE,RANDOM 121 mg/dL (74-106); POTASSIUM 3.8 mmol/L (3.5-5.1); SGOT/AST 25 U/L (15-37); SGPT/ALT 26 U/L (13-61); SODIUM 142 mmol/L (136-145); TOT PROT 7.2 g/dl (6.4-8.2)
[2019-10-05] MEDS ORDERED: SODIUM CHLORIDE 0.9% 500 ML INFUS.BAG IV ONE (16:06)
[2019-10-05] MEDS ORDERED: ACETAMINOPHEN 1000 MG/100 ML VIAL (NON FORMULARY) IVPB ONE (16:06)
--- NOTE | 2019-10-05 16:30 | PDOC ---
Documentation entered by Brianda Jung SCRIBE, acting as scribe for Harlan Webb MD. Harlan Webb MD: This documentation has been prepared by the scribe, Brianda Jung SCRIBE, under my direction and personally reviewed by me in its entirety. I confirm that the documentation accurately reflects all work, treatment, procedures, and medical decision making performed by me. Attending Attestation - Resident Resident Name: MandeepPatricio lopez - ED Attending Attestation I have performed the following: I have examined & evaluated the patient, The case was reviewed & discussed with the resident, I agree w/resident's findings & plan, Exceptions are as noted - HPI HPI: 10/05/19 13:48 Patient is a 54 year old female with a significant past medical history of hypertension, HLD, Hysterctomy, Right breast mass removed, knee surgery, anxiety, and recently diagnosed H. pylori by EGD, who presents to the ED, BIBA, with throat pain x1 day. Patient stated that her throat started feeling sore yesterday but that today it got "really worse" along with SOB which she believes is due to her anxiety. Patient denies: nausea, vomiting, palpitations, any urinary changes, or any other related symptoms. Allergies: molindone HCl, shellfish, tomatoes PCP: Dr. Chester GI: Dr. Moreira - Physicial Exam PE: 10/05/19 14:47 Vitals: Triage vital signs reviewed General Appearance: No acute distress, well nourished, well developed Head: Atraumatic Nose: Nares patent bilaterally; no nasal congestion Throat: Posterior oropharynx without erythema, mucous membranes moist Neck: Supple; No nuchal rigidity, No bruits. No crepitus. Chest Wall: Nontender Cardiac: Regular rate and rhythm, no murmurs, no rubs, no gallops Lungs: Clear to auscultation bilateral, good air movement bilaterally Abdomen: Soft, nondistended, normal bowel sounds, nontender to palpation Extremities: Full range of motion to all extremities, no cyanosis, clubbing, or edema Skin: Warm and dry, no rashes or lesions, no rash, no petechiae Psych: Normal mood, normal affect - Medical Decision Making 10/05/19 16:30 54 years old with past medical history significant for hypertension hyperlipidemia hysterectomy anxiety recent endoscopy 1 week ago presents to the ED with sore throat No acute findings on physical exam patient notably anxious no bruits no crepitus Chest x-ray PA and lateral demonstrates no free air or evidence of pneumoperitoneum patient treated with half a milligram of Ativan for anxiety and viscous lidocaine for throat discomfort feels much better Slightly tachycardic will hydrate observe and reassess Dr. Daniel to follow-up reassess and dispel patient. Yes Discharge - Discharge Information Problems reviewed: Yes Clinical Impression/Diagnosis: Sore throat - Follow up/Referral Referrals: Trixie Chester MD [Primary Care Provider] - - Patient Discharge Instructions - Post Discharge Activity
[2019-10-05] MEDS ORDERED: ACETAMINOPHEN INJECTION 100 ML IVPB ONE (16:51)
[2019-10-05 18:06] VITALS: BP 137/84; PULSE 104; TEMP 97.8
[2019-10-05 18:18] LABS: EPI CELLS 17 /uL (0-25.1); HYALINE CASTS 1 /uL (0-3.1); URINE APPEARANCE CLEAR; URINE BACTERIA 128 /uL (0-1359); URINE BILIRUBIN NEGATIVE (NEGATIVE); URINE COLOR YELLOW; URINE GLUCOSE (UA) NEGATIVE (NEGATIVE); URINE KETONE TRACE (NEGATIVE); URINE LEUK ESTERASE 3+ (NEGATIVE); URINE NITRITE NEGATIVE (NEGATIVE); URINE PROTEIN TRACE (NEGATIVE); URINE RBC 39 /uL (0-23.9); URINE WBC 1480 /uL (0-25.8)
--- NOTE | 2019-10-06 09:21 | EKG ---
Test Reason : Blood Pressure : / mmHG Vent. Rate : 103 BPM Atrial Rate : 103 BPM P-R Int : 134 ms QRS Dur : 080 ms QT Int : 376 ms P-R-T Axes : 044 000 -03 degrees QTc Int : 492 ms SINUS TACHYCARDIA OTHERWISE NORMAL ECG WHEN COMPARED WITH ECG OF 28-NOV-2018 20:22, SINUS RHYTHM HAS REPLACED ECTOPIC ATRIAL RHYTHM QRS AXIS SHIFTED LEFT NONSPECIFIC T WAVE ABNORMALITY NO LONGER EVIDENT IN LATERAL LEADS Confirmed by MD JUAN, LAURIE ([id number]) on 10/06/2019 9:20:38 AM Referred By: Confirmed By:LAURIE MARTINEZ MD
== END 2019-10-05 18:31 | disposition home or self-care (01) ==
LOC: SUPCPDRO 12:54 → JER 12:54
PROC: 3E033NZ Introduction of Analgesics, Hypnotics, Sedatives into Peripheral Vein, Percutaneous Approach (ICD-10-PCS; principal; 2019-10-05)
PROC: 3E033GC Introduction of Other Therapeutic Substance into Peripheral Vein, Percutaneous Approach (ICD-10-PCS; 2019-10-05)
DX: R07.0 Pain in throat (principal)
CPT/HCPCS: 36415; 71046-TC-FY; 80053; 81003; 82550; 84484; 85025; 87491; 87591; 93005; 93010; 99285-25; J0131

== ENCOUNTER 2020-02-08 15:47 | Emergency (ER) | payer BC ==
[2020-02-08 15:53] VITALS: BP 114/67; PULSE 93; TEMP 97.8; BMI 39.1
[2020-02-08] MEDS ORDERED: KETOROLAC TROMETHAMINE 30 MG/1 ML VIAL IM ONE (16:12)
[2020-02-08] MEDS ORDERED: KETOROLAC TROMETHAMINE 30 MG/1 ML VIAL ONE (16:31)
== END 2020-02-08 16:47 | disposition home or self-care (01) ==
LOC: JERFT 15:47
PROC: 3E0233Z Introduction of Anti-inflammatory into Muscle, Percutaneous Approach (ICD-10-PCS; principal; 2020-02-08)
DX: M54.40 Lumbago with sciatica, unspecified side (principal)
CPT/HCPCS: 99284-25

== ENCOUNTER 2023-04-18 07:33 | Day surgery (SDC) | payer OTHER ==
[2023-04-14 17:41] VITALS: BMI 35.6
[2023-04-18] MEDS ORDERED: BUPIVACAINE HCL/PF 2.5 MG/ML - 30 ML VIAL IJ ONE (07:58)
[2023-04-18] MEDS ORDERED: EPINEPHrine/PF 1 MG/1 ML (1:1,000) AMPULE ONE (07:58)
[2023-04-18] MEDS ORDERED: EPINEPHrine 1:1,000 1,000 MCG/ML ML ONE (10:55)
[2023-04-18] MEDS ORDERED: ROPIVACAINE HCL 0.5% 30ML VIAL ONE (11:47)
[2023-04-18] MEDS ORDERED: MIDAZOLAM HCL 2 MG/2 ML SINGLE DOSE VIAL ONE (11:47)
[2023-04-18] MEDS ORDERED: DEXAMETHASONE SOD PHOSPHATE/PF 10 MG/ML SDV ONE (11:47)
[2023-04-18] MEDS ORDERED: FENTANYL CITRATE/PF 50 MCG/ML VIAL ONE (11:47)
[2023-04-18] MEDS ORDERED: PROPOFOL 40 ML ONE (12:09)
[2023-04-18] MEDS ORDERED: ONDANSETRON 4 MG/2 ML VIAL ONE (12:10)
[2023-04-18] MEDS ORDERED: ceFAZolin SODIUM 1 GM VIAL ONE (12:10)
[2023-04-18] MEDS ORDERED: DEXAMETHASONE SOD PHOSPHATE 4 MG/1 ML VIAL ONE (12:10)
[2023-04-18] MEDS ORDERED: PROPOFOL 20 ML ONE (13:24)
[2023-04-18] MEDS ORDERED: HALOPERIDOL LACTATE 5 MG/ML ONE (14:20)
[2023-04-18] MEDS: HALOPERIDOL LACTATE 5 MG/ML IM SCH (14:25)
[2023-04-18] MEDS ORDERED: LACTATED RINGERS SOLUTION 1,000 ML IV SCH (14:30)
[2023-04-18] MEDS ORDERED: oxyCODONE HCL 5 MG TABLET PO PRN (14:30)
[2023-04-18] MEDS ORDERED: ONDANSETRON 4 MG/2 ML VIAL IVPUSH PRN (14:30)
[2023-04-18] MEDS ORDERED: HALOPERIDOL LACTATE 5 MG/ML IM ONE (15:00)
[2023-04-18 16:14] VITALS: PULSE 87; RESP 16; TEMP 97.9
[2023-04-18 16:25] VITALS: BP 125/74
== END 2023-04-18 16:10 | disposition home or self-care (01) ==
LOC: FASU 07:33
PROVIDERS: ATTEND Orthopaedic Surgery
PROC: 0RBK4ZZ Excision of Left Shoulder Joint, Percutaneous Endoscopic Approach (ICD-10-PCS; principal; 2023-04-18 12:25)
PROC: 0RNK4ZZ Release Left Shoulder Joint, Percutaneous Endoscopic Approach (ICD-10-PCS; 2023-04-18 12:25)
PROC: 0LS44ZZ Reposition Left Upper Arm Tendon, Percutaneous Endoscopic Approach (ICD-10-PCS; 2023-04-18 12:25)
DX: S46.012D Strain of muscle(s) and tendon(s) of the rotator cuff of left shoulder, subsequent encounter (principal); M75.22 Bicipital tendinitis, left shoulder; M75.52 Bursitis of left shoulder; M65.822 Other synovitis and tenosynovitis, left upper arm; S43.432D Superior glenoid labrum lesion of left shoulder, subsequent encounter; M75.02 Adhesive capsulitis of left shoulder; X58.XXXD Exposure to other specified factors, subsequent encounter
CPT/HCPCS: 82962; 88304-TC; 94760; C1713

== ENCOUNTER 2023-06-16 17:45 | Emergency (ER) | payer OTHER ==
[2023-06-16 18:10] VITALS: BP 139/75; PULSE 103; RESP 18; TEMP 98.2; BMI 35.2
[2023-06-16] MEDS ORDERED: ACETAMINOPHEN INJECTION 100 ML IVPB ONE (20:07)
[2023-06-16] MEDS: ACETAMINOPHEN 1000 MG/100 ML BAG IVPB ONE (20:19)
[2023-06-16] MEDS ORDERED: ONDANSETRON 4 MG/2 ML VIAL ONE (20:20)
[2023-06-16] MEDS: SODIUM CHLORIDE 0.9% 500 ML INFUS.BAG IV ONE (20:27)
[2023-06-16] MEDS: ONDANSETRON 4 MG/2 ML VIAL IVPUSH ONE (20:27)
[2023-06-16 20:36] LABS: BASO % 0.5 % (0-2.0); EOS % 1.3 % (0-4.5); HEMATOCRIT 37.9 % (32.4-45.2); HEMOGLOBIN 12.1 GM/dL (10.7-15.3); LYMPH % 45.2 % (8-40); MCH 27.6 pg (25.7-33.7); MCHC 31.9 g/dl (32.0-36.0); MEAN CELL VOLUME 86.6 fl (80-96); MEAN PLT VOLUME 8.6 fl (7.5-11.1); MONO % 5.5 % (3.8-10.2); NEUT % 47.5 % (42.8-82.8); PLATELET COUNT 318 10^3/uL (134-434); RBC 4.38 M/mm3 (3.60-5.2); RDW 15.1 % (11.6-15.6); WHITE BLOOD COUNT 12.4 K/mm3 (4.0-10.0)
[2023-06-16 20:43] LABS: INR 0.95 (0.83-1.09)
[2023-06-16 20:45] LABS: ACTIVATED PTT 28.3 SECONDS (25.2-36.5)
[2023-06-16 20:48] LABS: POTASSIUM 4.1 mmol/L (3.5-5.1)
[2023-06-16 20:50] LABS: CALCIUM 9.3 mg/dL (8.5-10.1)
[2023-06-16 20:51] LABS: ALBUMIN 3.4 g/dl (3.4-5.0); BLOOD UREA NITROGEN 13.2 mg/dL (7-18)
[2023-06-16 20:54] LABS: CREATININE 1.1 mg/dL (0.55-1.3)
[2023-06-16 20:56] LABS: BILIRUBIN,TOTAL 0.2 mg/dL (0.2-1); TOT PROT 6.9 g/dl (6.4-8.2)
[2023-06-16 21:02] LABS: PH,URINE 7.5 (5.0-8.0); URINE APPEARANCE CLEAR; URINE BILIRUBIN NEGATIVE (NEGATIVE); URINE COLOR YELLOW; URINE GLUCOSE (UA) NEGATIVE (NEGATIVE); URINE KETONE TRACE (NEGATIVE); URINE LEUK ESTERASE NEGATIVE (NEGATIVE); URINE NITRITE NEGATIVE (NEGATIVE); URINE PROTEIN NEGATIVE (NEGATIVE); URINE UROBILINOGEN 0.2 mg/dL (0.2-1.0)
== END 2023-06-16 22:09 | disposition home or self-care (01) ==
LOC: JER 17:45
PROC: 3E030NZ Introduction of Analgesics, Hypnotics, Sedatives into Peripheral Vein, Open Approach (ICD-10-PCS; principal; 2023-06-16)
PROC: 3E030GC Introduction of Other Therapeutic Substance into Peripheral Vein, Open Approach (ICD-10-PCS; 2023-06-16)
DX: D72.829 Elevated white blood cell count, unspecified (principal); M79.89 Other specified soft tissue disorders; Z20.822 Contact with and (suspected) exposure to COVID-19
CPT/HCPCS: 0241U-QW; 36415; 71046-TC-FY; 80053; 81003; 84484; 85025; 85610; 85730; 87086; 93005; 93010; 93971; 93971-TC; 99285-25; J0131